=== PATIENT | male | born 1945 | race Two or more races ===

== ENCOUNTER 2016-11-02 09:03 | Inpatient (IN) | payer MEDICARE, OTHER ==
[~2016-11-02] VITALS: Ht 160 cm; Wt 73.0 kg
--- NOTE | ~2016-11-02 | DS ---
PATIENT'S NAME: ALBA SILVA [facility] AGE: 71 Y [address] ROOM: [address] [address] [place] [facility] [place]: [place]02[place]2016 Discharge Summary DISCHARGE DATE: 11/18/2016 FAMILY PHYSICIAN: Michel Walton MD ATTENDING PHYSICIAN: Ronni Welch V PRIMARY DIAGNOSES: 1. Severe sepsis. 2. Infective endocarditis. 3. MSSA bacteremia. 4. Acute encephalopathy. 5. Accelerated hypertension. 6. Chronic conditions include:. a. End-stage renal disease on hemodialysis. b. Diabetes type 2. c. Essential hypertension. d. Anemia of chronic disease. 7. Thrombocytopenia. PRINCIPAL PROCEDURE: Done for the patient includes a fistulogram by Zain Beck, and also transfusion with 1 unit of PRBC. LABORATORY DATA: On admission, ABG: pH of 7.45, pCO2 of 44, pO2 of 69, this was on day of transfer to ICU, bicarb 30.6 on 2 L of oxygen. WBC on admission was 6.9, prior to discharge was 5.4; H and H on admission were 9.7 and 29.2, lowest level obtained was 5.8 and 16.7, prior to discharge were 8.1 and 25.0; on admission platelet was 87, prior to discharge was 336. Sodium on admission was 136, was stable throughout the hospital stay; potassium on admission was 4.6, was also stable throughout the hospital stay, prior to discharge was 4.8; bicarb was 24, was stable throughout the hospital stay, prior to discharge was 23; creatinine was 11.8, the patient has end-stage renal disease, on dialysis. Liver function test on admission: AST was 36, ALT 25, alkaline phosphatase 122, total bilirubin 0.9, was stable throughout the hospital stay except for alkaline phosphatase, which increased, prior to discharge was 632; total bilirubin was 0.9 and prior to discharge was 2.2. Magnesium was stable throughout the hospital stay. ESR was 85. Hemoglobin A1c was 7.8. UA with leukocytes negative, nitrite negative, wbc 2 to 5. Serum iron 48; TIBC 87; transferrin saturation 55%; haptoglobin 174 on admission, repeat was 189; folate 40. Prolactin 13.9. Procalcitonin on admission was 7.1, which was the highest level obtained. MICROBIOLOGY DATA: Blood culture x2 set was Staph aureus methicillin sensitive. Urine for Legionella antigen was negative, and urine culture was no growth after 2 days. Repeat blood cultures remain no growth. Multiple repeat cultures remain no growth. Stool for occult blood was positive x3. PATIENT'S NAME: ALBA SILVA [facility] AGE: 71 Y [address] ROOM: [place] [address] [place] [facility] [place]: 11/02/2016 Discharge Summary DISCHARGE DATE: 11/18/2016 FAMILY PHYSICIAN: Michel Walton MD ATTENDING PHYSICIAN: Ronni Welch V RADIOLOGY DATA: Chest x-ray was reported as cardiac silhouette is mildly prominent, although accentuated by suboptimal inspiration. There is prominence of the perihilar interstitial markings. CT of the head, no acute hemorrhage or midline shift, generalized atrophic changes. CT lumbar spine, extensive multilevel degenerative changes with multiple areas of significant canal and bilateral neuroforaminal stenosis, worse at L4 and L5. No definite evidence of diskitis or osteomyelitis. CT lumbar stable overall appearance since imaging of 11/03. Repeat CT head, stable. No evidence of acute intracranial abnormality. Abdominal ultrasound, no evidence of biliary obstruction. Atrophic kidneys. CT abdomen and pelvis, small bilateral pleural fluid collection and bibasilar consolidation, worse on the left side. Calcified granuloma at the mid left lung, fluid within small bowel loops and colon with no evidence of obstruction. Subcutaneous edema involving the flanks and proximal thigh. Echocardiogram for TRAE is reported as ejection fraction 55% to 60%. Mitral valve is thickened and calcified. There is a small echogenic density attached to the posterior leaflet of the mitral valve. It is on the left atrial side and has independent motion suggestive of vegetation. Echocardiogram, ejection fraction 60%, moderate septal left ventricular hypertrophy, grade 2 diastolic dysfunction, pseudonormal. HOSPITAL COURSE: For history of present illness, please take a look at the H and P, which was done by Dr. Welch. The patient was admitted to progressive care unit. He was managed as a case of severe sepsis given his presentation of confusion mixed with some intermittent period of obtundation. He did get a Renal consult from his first day of his hospital stay, and the patient was dialyzed on his first day, and he was also started on broad-spectrum antibiotics of Zosyn and Vancomycin since the source of his sepsis at this point in time was unknown. However, there was high concern for probable diskitis as well since the patient also presented with some back pain. However, an MRI of his back was unable to be done, and so he ultimately got a CT of his lumbar done, which did not show any signs of diskitis. However, during his hospital stay, the patient still continued complaining of back pain, which did not respond to most of the analgesics used. We switched from tramadol to Percocet, which did not help. That was stopped, and then ultimately was switched to MS Contin, which as well did not do make much difference, and he was also put on Toradol. By the next day of his hospital PATIENT'S NAME: ALBA SILVA [facility] AGE: 71 Y [address] ROOM: [address] [address] [place] [facility] [place]: 11/02/2016 Discharge Summary DISCHARGE DATE: 11/18/2016 FAMILY PHYSICIAN: Michel Walton MD ATTENDING PHYSICIAN: Ronni Welch V stay, the patient's blood culture was already positive for Staph, so his antibiotics was deescalated, and Zosyn was discontinued. He was continued on vancomycin. By the second day of his hospital stay, the sensitivity came out to be MSSA, and Vancomycin was discontinued, and he was ultimately put on oxacillin. He did also get an ID consult, and they agreed with the antibiotics. Also given the nature of the organism, which was present in the blood, he did get a TRAE done, which showed mitral valve vegetation, so he was managed as a case of mitral valve endocarditis. Recommendations by ID were to continue antibiotics for a total of 6 weeks from a negative blood culture. By the seventh day of his hospital stay, the patient's confusion got worse up to the extent that he got worsened to be delirium, and at this point in time, the patient was transferred from PCU to ICU. The reason for his delirium was thought to be secondary to polypharmacy from his pain medication, which he was getting for his back pain. While in ICU, the patient continued with his hemodialysis, and he did also develop some accelerated hypertension, which did not respond to nitroglycerin drip and also did not respond to increase in the volume of fluid, which was taken out during dialysis. He was also put on Cardene drip for the blood pressure control. This as well did not help. However, his p.o. blood pressure pills were titrated upwards, and this helped with the control of the blood pressure. By the second day of his stay in the ICU, his delirium got better; he was awake and slowly was becoming more oriented. Finally, in the ICU, his mentation returned to baseline. He was continued on antibiotics. Please note that when the patient was transferred to the ICU, his oxacillin was discontinued, and he was put on Zosyn, and after the patient was reviewed again by the ID team, they decided to put the patient on Ancef 2 g with dialysis, and this is what the patient was continued on until discharge. The patient continued with physical therapy, occupational therapy. His mentation had returned to baseline. He was now alert, awake, and oriented x3, and his back pain was better controlled, and he was ultimately transferred out of the ICU to regular floor from where he was discharged home with Home Health and physical therapy. So on the day of discharge, vital signs were stable. He was ambulating on the hallway 150 feet, still did complain of some back pain but which was controlled with analgesics that he was on, and the patient was discharged home. MEDICATIONS ON DISCHARGE: 1. Ranitidine 150 mg orally twice daily. 2. Calcium acetate 667 mg orally 3 times daily. 3. Coreg 25 mg twice daily. 4. Norvasc 10 mg p.o. q.h.s. 5. Lipitor 10 mg orally q.h.s. 6. Requip 0.25 mg orally q.h.s. 7. Ipratropium nasally 1 to 2 sprays everyday. 8. Ancef 2 g Mondays, Wednesdays, and Fridays with dialysis. 9. Insulin Levemir 7 units subcu q.h.s. PATIENT'S NAME: ALBA SILVA [facility] AGE: 71 Y [address] ROOM: [address] [place] [id number] [place] [facility] [place]: 11/02/2016 Discharge Summary DISCHARGE DATE: 11/18/2016 FAMILY PHYSICIAN: Michel Walton MD ATTENDING PHYSICIAN: Ronni Welch V 10. Lidocaine patch. 11. Lisinopril 20 mg p.o. daily, new medication. 12. MiraLAX 17 g p.o. twice daily p.r.n. 13. Aldactone 25 mg p.o. daily, new medication. 14. Tracy 1 tablet every 4 hours p.r.n. 15. Dextrose 15 g orally p.r.n. 16. Glucagon 1 mg subcu one time p.r.n. Discharge time spent on this patient is approximately 40 minutes. MD NAYELY SAMUEL/sara /[id number] d: 11/19/16 0113 t: 11/30/16 0957, DISCHARGE SUMMARY
--- NOTE | ~2016-11-02 | CON ---
PATIENT'S NAME: ALBA SILVA [facility] AGE: 71 Y [address] ROOM: [place] [address] LOCATION: [facility] ADMIT DATE: 11/02/2016 Consultation DISCHARGE DATE: FAMILY PHYSICIAN: Michel Walton MD ATTENDING PHYSICIAN: MATHWE CARPIO V DATE OF CONSULTATION: 11/04/2016 REFERRING PHYSICIAN: ARGENIS PEDROZA REASON FOR EVALUATION: Bacteremia. CHIEF COMPLAINT: The patient states his back hurts. HISTORY OF PRESENT ILLNESS: Mr. Silva is a 71-year-old man with end-stage renal disease, on dialysis. He has a fistula in his left arm. There have been no issues with his fistula. He developed fevers. The source of this was not clear. He ends up being admitted to the hospital after a couple of ER trips. He grew MSSA in his blood. Initially on vancomycin and Zosyn, he has been changed over to oxacillin today. He has had no adverse effect to his antibiotics. His temperatures are doing better. He does, however, have back pain. This is different from his normal back pain and it is worse. He has no lower extremity weakness symptoms. He did have a CT of his back, which was suggestive only of degenerative disease. He cannot have an MRI due to his pacemaker. A Cardiology evaluation has been requested for TRAE. This has not yet been done. I am asked to evaluate. PAST MEDICAL HISTORY: Significant for diabetes; high blood pressure; end-stage renal disease, on dialysis; sick sinus syndrome with a pacemaker in place. SOCIAL HISTORY: Negative for tobacco, alcohol, or drug use, was living independently prior to admission. FAMILY HISTORY: No unusual infections or immune disorders. REVIEW OF SYSTEMS: Pertinent positives include: MUSCULOSKELETAL: The patient with back pain. CONSTITUTIONAL: The patient with previous fevers. GENITOURINARY: The patient has end-stage renal disease, on dialysis. PATIENT'S NAME: ALBA SILVA [facility] AGE: 71 Y [address] ROOM: [address] [place] [id number] LOCATION: [facility] ADMIT DATE: 11/02/2016 Consultation DISCHARGE DATE: FAMILY PHYSICIAN: Michel Walton MD ATTENDING PHYSICIAN: MATHEW CARPIO V As the patient denies other symptoms, remainder of complete review of systems is otherwise negative. PHYSICAL EXAMINATION: GENERAL: The patient is lying in bed, in no acute distress. Appears nontoxic. HEENT: The patient is anicteric. No conjunctival lesions noted. Ears, Nose, Throat: Tongue has no thrush. CARDIOVASCULAR: Heart is regular rate and rhythm. There is a systolic murmur present. RESPIRATORY: Breathing is easy, unlabored. Lungs are clear anterolaterally. GASTROINTESTINAL: Abdomen is soft, nontender. Normoactive bowel sounds are present. GENITOURINARY: No suprapubic tenderness. NEUROLOGIC: The patient is awake, alert, appropriate in conversation. LYMPHATIC: No cervical lymphadenopathy. MUSCULOSKELETAL: No effusions of fingers, wrists, elbows, shoulders, or knees. He has good strength in his feet. INTEGUMENTARY: No obvious rash. LABORATORY DATA: Laboratory studies are reviewed in the electronic medical record. ASSESSMENT AND RECOMMENDATIONS: 1. MSSA septicemia. Source of this is not clear. He does have a fistula. The area does not appear overtly infected. There have been no issues with dialysis access. Surveillance blood cultures are cooking from today. I agree with the oxacillin. We will see what these followup cultures have to show, and he will need a TRAE given the presence of a pacemaker. He is looking at a minimum of 4 to 6 weeks of parenteral antibiotics. Should his TRAE be negative, I would proceed with a bone scan to better evaluate for back infection. Given staphylococcal bacteremia and new/worsening back pain, this is always a concern. He can obtain an MRI. CT may be unrevealing early but a bone scan should still have some diagnostic ability here. This would not let us know if there is an abscess, but it would let us know if there is some infection and would change our overall duration of therapy etc. Thank for allowing me to participate in the care of Mr. Silva. TANYA MCNEILL MD PATIENT'S NAME: ALBA SILVA [facility] AGE: 71 Y [address] ROOM: [place] [address] [facility]ATION: [facility] ADMIT DATE: 11/02/2016 Consultation DISCHARGE DATE: FAMILY PHYSICIAN: Michel Walton MD ATTENDING PHYSICIAN: MATHEW CARPIO V DSQ/modl /[id number] d: 11/05/16 0115 t: 11/05/16 1002, CONSULTATION REPORT
--- NOTE | ~2016-11-02 | ER ---
PATIENT'S NAME: ALBA SILVA [facility] AGE: 71 Y [address] ROOM: [place] [address] LOCATION: [facility] ADMIT DATE: 11/02/2016 ER/Outpatient Report DISCHARGE DATE: FAMILY PHYSICIAN: Michel Walton MD ATTENDING PHYSICIAN: MATHEW CARPIO V Time of Arrival: 0903 hours. Time of Evaluation: 0905 hours. IDENTIFICATION: A 71-year-old male. CHIEF COMPLAINT: Illness. HISTORY OF PRESENT ILLNESS: The patient is a 71-year-old male from [place], who has end-stage renal disease, on dialysis 3 times a week from a fistula in his left upper arm. He has had fever and weakness. He was seen in the [facility] yesterday, given 1 L of IV fluids. Lab work was done to include sodium of 142, potassium 4.8, chloride 94, CO2 of 29, BUN 61, creatinine 10.34, blood sugar 255. Liver enzymes were normal, and this was at 2134 hours. Hemoglobin 12.1, hematocrit 37, platelets 105, white count 10.6. He continues to have generalized weakness and fever, so he was brought here. ALLERGIES: NO KNOWN DRUG ALLERGIES. CURRENT MEDICATIONS: 1. Amlodipine 10 mg daily. 2. Atorvastatin 10 mg daily. 3. Calcium acetate 667 mg 3 times a day. 4. Carvedilol 25 mg b.i.d. 5. Diltiazem 180 mg once daily. 6. Lantus 15 units subcu q.a.m. 7. Ranitidine 150 b.i.d. 8. Ropinirole 0.25 mg daily. 9. Valsartan 320 mg daily. 10. The patient has not taken his medicine since yesterday and has not taken his insulin for a couple of weeks because his blood sugars have actually been better. MEDICAL PROBLEMS: 1. Diabetes mellitus, insulin requiring. 2. End-stage renal disease, on hemodialysis for 9 years on Wednesday, PATIENT'S NAME: RICARDO [facility] AGE: 71 Y [address] ROOM: [place] [address] LOCATION: [facility] ADMIT DATE: 11/02/2016 ER/Outpatient Report DISCHARGE DATE: FAMILY PHYSICIAN: Michel Walton MD ATTENDING PHYSICIAN: MATHEW CARPIO V Wednesday, and Wednesday. 3. Sick sinus syndrome, status post pacemaker placement. PRIOR SURGERIES: 1. Pacemaker. 2. Fistula, left upper arm. 3. Bilateral cataracts. SOCIAL HISTORY: The patient lives in [place]. He does have his power of criminal defense attorney, who is his daughter, and she does care for him at some level, here with him today. REVIEW OF SYSTEMS: All systems reviewed and negative other than what is noted in the HPI. FAMILY HISTORY: No pertinent family history identified. PHYSICAL EXAMINATION: VITAL SIGNS: Height 5 feet 2 inches, weight 63.2 kg, blood pressure 171/79, pulse 91, respirations 20, temp 103 tympanic, sats 90% on room air. GENERAL: A 71-year-old male, who has generalized weakness but otherwise alert and oriented. HEENT: Head: Normocephalic, atraumatic. Ears: TMs translucent both ears. Nose: Mucosa pink, no lesions. Mouth: No lesions. Pharynx benign. Mucous membranes slightly dry. NECK: Supple. No lymphadenopathy. LUNGS: Clear to auscultation. HEART: Regular rate and rhythm. ABDOMEN: Bowel sounds present. Soft, nondistended. No hepatosplenomegaly. No palpable masses. Nontender. SKIN: [place], warm, and dry. No lesions or rashes noted. NEURO: The patient is alert and oriented x4. Cranial nerves 2 through 12 grossly intact. Generalized weakness, but he does have equal motor strength. He is just generally weak, probably 4/5 throughout. Sensation is intact to light touch. LABORATORY DATA AND X-RAYS: Venous pH 7.48. Lactate 1.6. Sodium 136, potassium 4.6, chloride 97, CO2 of 24, BUN 64, creatinine 11.8, blood sugar 283. Liver enzymes normal. Phosphorus 2.0, magnesium 2.2. CPK 361, CK-MB 1.1. Troponin I 0.088. Hemoglobin A1c 7.8. Ketones negative. Hemoglobin 9.7, hemoglobin that was after redraw yesterday in [place] was 12.1; hematocrit 29.2; platelets 87, platelet count yesterday in [place] was 105, no previous platelet count available here for comparison. INR 1.1. White blood cell differential 78% segs, 11% bands. Procalcitonin elevated at 27.14. UA not obtained here in PATIENT'S NAME: ALBA SILVA [facility] AGE: 71 Y [address] ROOM: [id number] [place], [place] [address] LOCATION: [facility] ADMIT DATE: 11/02/2016 ER/Outpatient Report DISCHARGE DATE: FAMILY PHYSICIAN: Michel Walton MD ATTENDING PHYSICIAN: MATHEW CARPIO V the emergency room. The patient makes minimal urine and is incontinent of urine. One-view chest x-ray, cardiomegaly, suboptimal inspiration, no definite infiltrate, left-sided pacer, mild increased pulmonary vascularity, pending Radiology over-read. His daughter thought maybe his speech was a little abnormal. It did not seem to change here for us, but we did do a noncontrasted head CT with no acute findings per Radiology. IMPRESSION AND PLAN: 1. Sepsis. No acute etiology identified. Influenza was tested yesterday and was negative. The patient was empirically started on the sepsis pathway, and antibiotics were ordered to include Levaquin and Zosyn. The Levaquin was initiated in the emergency room. The Zosyn will be initiated after dialysis. The patient remained hemodynamically stable throughout his stay here in the emergency room. 2. Diabetes mellitus, insulin requiring. 3. End-stage renal disease, on hemodialysis. Plan for admission per Dr. Carpio, who evaluated the patient in the emergency room, and then he was taken to dialysis for Mila De Santiago. BLANKA POLLARD MD CAR/modl /[id number] d: 11/02/16 2359 t: 11/03/16 0923, OUTPATIENT REPORT
--- NOTE | ~2016-11-02 | CON ---
PATIENT'S NAME: ALBA SILVA [facility] AGE: 71 Y [address] ROOM: [address]63[address] [place], [place] [address] LOCATION: GPCU ADMIT DATE: 11/02/2016 Consultation DISCHARGE DATE: FAMILY PHYSICIAN: Michel Walton MD ATTENDING PHYSICIAN: MATHEW CARPIO V DATE OF CONSULTATION: 11/02/2016 REASON FOR CONSULTATION: ESRD, management of chronic hemodialysis. HISTORY OF PRESENT ILLNESS: A 71-year-old male patient with a history of hypertension, Type II DM, coronary artery disease, status post permanent pacemaker implantation, ESRD, on hemodialysis for last 9 years, admitted with fever of 103F without any specific source at this point. Nephrology consultation has been called for the chronic hemodialysis management. As per the patient, he was feeling well until a couple of days ago. Since then, he was having chills and fever this morning of 103 degree Fahrenheit. Instead of going to the dialysis unit, he came to the ER when he was treated initially with Tylenol, which helped him to decrease his fever, but he was given ibuprofen afterwards resulting in defervescence. He was started on vancomycin, Zosyn, and Levaquin for suspected sepsis. Chest x-ray although not optimal but has probable bilateral hilar and left lower lobe infiltrate. He was also saying that he is having trouble with finding words, but he is alert and oriented. CT scan of head without contrast has been done for this decreased mentation and was reported to be negative without any acute changes. The patient is getting dialysis as per his usual dialysis schedule on Wednesday, Wednesday, and Wednesday. We will dialyze him today in our inpatient dialysis unit. REVIEW OF SYSTEMS: GENERAL: Complaining of fever, chills, and rigor as mentioned above. HEENT: No sinus congestion. No sore throat. CVS: No chest pain. No exertional shortness of breath. No leg swelling. RESPIRATORY: No cough. No sputum production. GENITOURINARY: No pain with urination. No increased frequency. No nocturia. GASTROINTESTINAL: No abdominal pain. No abdominal distention. No nausea or vomiting. NEUROLOGIC: No weakness. No seizures. SKIN: No rash. No itching. ALLERGIES: No seasonal allergy. No hayfever. ENDOCRINE: No heat intolerance. No cold intolerance. PSYCHIATRIC: No sadness. No crying spells. No history of panic attack. PAST MEDICAL HISTORY: 1. Hypertension. 2. Diabetes 3. CAD. 4. Bradycardia, query sick sinus syndrome. 5. ESRD, on chronic in-center hemodialysis for last 9 years. PAST SURGICAL HISTORY: Permanent pacemaker implantation a year back at [facility]. FAMILY HISTORY: He has significant history of hypertension and coronary artery disease in the family. No history of renal failure or ESRD. PATIENT'S NAME: ALBA SILVA [facility] AGE: 71 Y [address] ROOM: [id number] [place], [place] [address] LOCATION: GPCU ADMIT DATE: 11/02/2016 Consultation DISCHARGE DATE: FAMILY PHYSICIAN: Michel Walton MD ATTENDING PHYSICIAN: MATHEW CARPIO V SOCIAL HISTORY: Denied any alcohol, smoke, or drug abuse. He lives in [place]. PHYSICAL EXAMINATION: VITAL SIGNS: Blood pressure ranging from 100 to 140 over 50 to 60, pulse is 80, respiratory rate 18. The patient had a temperature of 102.7 at the initiation of dialysis, which improved to 100.2 degree Fahrenheit with ibuprofen. GENERAL: Not in apparent distress. HEAD: Moist mucous membranes. Bilateral PERRLA, EOMI. NECK: No JVD, thyromegaly or lymphadenopathy. CVS: S1 and S2 normal, regular rate and rhythm. No murmur, rub, gallop. CHEST: Bilateral air entry equal. No wheeze or rales. ABDOMEN: Soft, nontender, nondistended. Bowel sounds present. EXTREMITIES: No cyanosis, clubbing, jaundice. No dependent edema. MUSCULOSKELETAL: No limitation of range of motion. SKIN: No pallor, cyanosis, icterus. LONG TERM: Alert and oriented x3. No gross findings. LABORATORY DATA: WBC 6.9, hemoglobin 9.7, platelet 87. Lactate 1.6. Troponin 0.088. Chemistry: Sodium 136, potassium 4.6, chloride 97, bicarb 24, BUN 64, creatinine 11.8, glucose 283, calcium 9.1. Total protein 7.6, albumin 3.5, AST 36, ALT 25, alkaline phosphatase 122, total bilirubin 0.9, phosphorus 2. PT 11.4, INR 1.1, PTT 32. Procalcitonin 27.14. Band percentage 11. ASSESSMENT AND PLAN: 1. Fever of unknown origin/abscess, although there is no significant leukocytosis, but the patient has significant bandemia and increase in procalcitonin suggestive of infection. The patient has been started on vancomycin, Zosyn, and Levaquin. Culture has been sent from blood for both aerobic and anaerobic culture. The patient will need possibly a CT scan of chest for better evaluation of the pulmonary opacity/infiltrate. Currently, euvolume status, and there is no concern of fluid overload. We will give a liter of fluid bolus on dialysis as the patient's blood pressure is too labile while on dialysis. Rest of the management of sepsis as per the primary care team. 2. End-stage renal disease, on hemodialysis on Wednesday, Wednesday, and Wednesday schedule for the last 9 years. Currently seen and examined on dialysis. The patient is tolerating hemodialysis well except maintaining a marginal blood pressure. Otherwise, no significant neurological complications. We are dialyzing him on a 2 K bath for 4 hours with no fluid removal, and actually, we are giving a liter of fluid bolus to support his hemodynamics as his blood pressure is very labile. 3. Hypertension. Blood pressure is marginal as mentioned above. We will hold the amlodipine and diltiazem for now. May continue Coreg. 4. Coronary artery disease. Management as per primary team. Thank you for allowing me to participate in this patient's care. We will closely monitor the patient's progress along with you. HISEKH MAURICIO PEDROZA MD /modl /[id number] d: 11/02/162139 t: 11/03/16 1334, CONSULTATION REPORT
--- NOTE | ~2016-11-02 | OR ---
PATIENT'S NAME: ALBA SILVA [facility] AGE: 71 Y [address] ROOM: [place] [address] [facility] ADMIT DATE: 11/02/2016 OR/Procedure Report DISCHARGE DATE: FAMILY PHYSICIAN: Michel Walton MD ATTENDING PHYSICIAN: MATHEW CARPIO V SURGEON: Hipolito Gurrola MD PICKER TENDER: DATE OF PROCEDURE: 11/06/2016 PREOPERATIVE DIAGNOSIS: Poorly functioning AV fistula. POSTOPERATIVE DIAGNOSIS: No abnormality seen. PROCEDURE: Fistulogram. INTERNATIONAL TRADE TEACHER: Manoj. ANESTHESIA: MAC local. ESTIMATED BLOOD LOSS: 5 mL. OPERATIVE FINDINGS: No abnormality seen. DESCRIPTION OF PROCEDURE: The patient was brought to the laborer steel handling, placed supine on the laborer steel handling table, prepped and draped in a sterile manner. Preoperative time-out was performed. We gained access using ultrasound guidance via the left arm radiocephalic AV fistula. We used a micropuncture needle, followed by micropuncture wire, after infiltrating skin with 1% lidocaine. We exchanged for a micropuncture catheter and performed a series of fistulogram which showed no abnormality in the outflow tract or in the inflow tract. The sheath was removed. Pressure was held for 10 minutes. The patient tolerated the procedure well and transferred to recovery room and then back to the floor. HIPOLITO GURROLA MD FKM/modl /[id number] d: 11/06/162057 t: 11/07/16 1042, OPERATIVE SUMMARY
--- NOTE | ~2016-11-02 | CON ---
PATIENT'S NAME: ALBA SILVA [facility] AGE: 71 Y [address] ROOM: [place] [address] LOCATION: GICU ADMIT DATE: 11/02/2016 Consultation DISCHARGE DATE: FAMILY PHYSICIAN: Michel Walton MD ATTENDING PHYSICIAN: MATHEW CARPIO V DATE OF CONSULTATION: 11/12/2016 REFERRING PHYSICIAN: ARGENIS PEDROZA REASON FOR REQUEST: Anemia with recent positive heme test. HISTORY OF PRESENT ILLNESS: This is a 71-year-old male, most recently admitted for fever of 103.4, with general malaise. This started around the 31 of October. Previously, the patient was worked up with a TRAE showing vegetation on the post mitral valve, also positive for MSSA in the blood of which ID following and the patient is receiving a 4-6 week regimen of antibiotic therapy. The patient also had a fistulogram during the hospital stay showing no abnormalities. GI is being brought onto the case due to a recent drop in hemoglobin from 7.1 to 5.8 with a recheck of 6.2 after 1 unit of PRBCs transfused and has also tested positive for blood in the stool. The patient reports no recent abdominal tenderness, nausea, vomiting, or diarrhea. Denies any shortness of breath, chest pain, or dyspnea on exertion. The patient reports no recent chills or night sweats. The patient appeared calm, cooperative, and comfortable and sitting up in a chair at this time of evaluation. PAST MEDICAL HISTORY: Consists type 2 diabetes mellitus; hypertension; coronary artery disease; end- stage renal disease, requiring hemodialysis; and sick sinus syndrome, status post pacemaker. SURGICAL HISTORY: Permanent pacemaker, a left arm radiocephalic fistula with recent fistulogram. No history of colonoscopy or upper endoscopy. FAMILY HISTORY: Significant for hypertension and coronary artery disease, without any gastrointestinal family history. SOCIAL HISTORY: The patient resides in [place] and denies any alcohol, tobacco, or illicit drug use. MEDICATIONS: PATIENT'S NAME: RICARDO [facility] AGE: 71 Y [address] ROOM: [place] [address] LOCATION: GICU ADMIT DATE: 11/02/2016 Consultation DISCHARGE DATE: FAMILY PHYSICIAN: Michel Walton MD ATTENDING PHYSICIAN: MATHEW CARPIO V Please see E-MAR for current medications. Currently not on any medications specific to the GI. ALLERGIES: NO KNOWN DRUG ALLERGIES. REVIEW OF SYSTEMS: A 10-point review negative besides pertinent positives mentioned in the HPI. The patient denies melena, hematemesis, or abdominal discomfort. PHYSICAL EXAMINATION: VITAL SIGNS: Temperature 98.6, heart rate of 80, blood pressure 191/100, and oxygen saturation 97% on room air. GENERAL: Alert, slightly confused, sitting up in chair. NEUROLOGICAL: Without any focal deficits. HEENT: Pupils equal, round, and reactive to light. Normocephalic, atraumatic. Non-icteric. Mucosa pink and moist without any thyromegaly or lymphadenopathy. CARDIAC: Regular rate and rhythm. S1 and S2. RESPIRATORY: Clear throughout and on auscultation equal rise and fall of chest. ABDOMEN: Bowel sounds positive x4 quadrants. Abdomen nontender and soft without any hepatosplenomegaly. MUSCULOSKELETAL: Equal strength throughout without any atrophy. VASCULAR: Pulses are 1+ to posterior tibialis and dorsalis pedis bilaterally. No significant edema. LABORATORIES AND DIAGNOSTICS: Accu-Cheks ranging 123, 225, 73, and 93. Hemoglobin 7.2, hematocrit 20.7, white blood cells 7.9, and platelets of 223. Sodium 132, potassium 4.4, chloride 94, bicarb 25, BUN 34, creatinine 6.7, calcium 8.4, and GFR of 8. Magnesium 2.3, phosphorus 2.4, albumin 2.4, procalcitonin 7.85. AST 26, ALT 11, alkaline phosphatase 300, total bilirubin 3.6. RDW 18.6. Reticulocyte 2.2. LDH 224. Haptoglobin 189. Lipase 101. Urinalysis showing minimal bacteria. Recent stool positive for occult blood. Blood cultures previously drawn positive with Staphylococcus aureus. Abdominal ultrasound showing atrophic kidneys. No biliary obstruction. Common bile duct measuring [address] of abdomen, GI specifics of fluid within the small bowel loops and colon without any evidence of obstruction. ASSESSMENT AND PLAN: Again, this is a very pleasant 71-year-old male, presenting for a severe sepsis workup followed with TRAE showing vegetation. Blood cultures positive for methicillin-sensitive Staphylococcus aureus and recently a drop in hemoglobin with positive heme test. PATIENT'S NAME: ALBA SILVA [facility] AGE: 71 Y [address] ROOM: [id number] [place], [place] [address] LOCATION: [facility] ADMIT DATE: 11/02/2016 Consultation DISCHARGE DATE: FAMILY PHYSICIAN: Michel Walton MD ATTENDING PHYSICIAN: MATHEW CARPIO V 1. Anemia. We will run iron studies along with TIBC, B12, folate, and ferritin for a full workup. We will also continue to trend hemoglobin q.4 hours and treat appropriately. 2. End-stage renal disease. The patient currently receiving hemodialysis with Nephrology on the case, and we will allow them to continue with management. 3. Methicillin-sensitive Staphylococcus aureus. Continue with current antibiotic regimen per Infectious Disease and Hospitalist Care. Again, thank you for the opportunity to be consulted on this case, and we will continue to follow with anemia workup and as needed. ROLF SHAFFER APRN FOR CHRIS CROSS MD MMF/modl /[id number] d: 11/12/16 2325 t: 11/20/16 1834, CONSULTATION REPORT
--- NOTE | ~2016-11-02 | ECHO ---
Transthoracic Echocardiography Report (TTE) Demographics Patient Name ALBA SILVA Date of Study 11/04/2016 Patient Number [id number] Visit Number [id number] Date of 1945 Room Number G6318 Gender Male Number Age 71 year(s) Referring Martha Melvin MD Batch And Furnace Operator Juwan Colung[place] Physician Isabelle Coulter MD Physician Interpreting Estela Alexandra Echo Technologist Physician MD Supervising Ordering Martha Melvin MD, MD/MLP Physician Nurse Stress Butcher Head Conclusions Contractility Score Summary Normal Left Ventricular contractility was noted. Summary Normal LV/RV size and systolic function. The estimated left ventricular ejection fraction is 60%. Moderate septal left ventricular hypertrophy. Diastolic assessment reveals Grade II pseudonormal diastolic function. The left atrium is moderately dilated by LA volume index measurement. The right atrium is mildly dilated. There is mild pulmonary hypertension. The pulmonary pressure (RVSP) is 37 mmHg. Clinical correlation, recommend TRAE to visualize the valves better if indicated. Procedure Type of Study TTE procedure:2D Echocardiogram, M-Mode, Doppler , Color Doppler. Procedure Date Date: 11/04/2016 Start: 03:23 PM Study Location: Inpatient Portable Technical Quality: Good visualization Indications:Endocarditis. Additional Indications:Staph sepsis Evaluate for endocarditis Appropriate Use Criteria: 9 Patient Status: Routine HR: 89 bpm BP: 159/72 mmHg M-Mode/2D Measurements LV Diastolic Dimension: 4.26 cm LV Systolic Dimension: 3.01 cm LV Septum Diastolic: 1.58 cm LV PW Diastolic: 1.01 cm AO Root Dimension: 2.9 cm Cardiac Output: 6.51 l/min LA Dimension: 3.6 cm Post Pericard Effusion: 1.9 cm LVOT: 2 cm EF Estimated: 60 % LVOT VTI: 23.3 cm LV Stroke volume: 73.16 ml RV Mid: 2.01 cm RV Length: 6.36 cm TAPSE: 2.37 cm TDI-S': 15.7 cm/s Doppler Measurements AV Peak Velocity: 1.6 m/s MV Peak E-Wave: 1.26 m/s AV Peak Gradient: 10.24 mmHg MV Peak A-Wave: 1.12 m/s AV Mean Gradient: 7 mmHg MV E/A Ratio: 1.12 LVOT Peak Velocity: 1.28 m/s MV P1/2t: 71 msec TR Gradient:28.94 mmHg PV Peak Velocity: 1.3 m/s Estimated RAP:8 mmHg PV Peak Gradient: 6.76 mmHg Estimated RVSP: 37 mmHg Estimated PASP: 36.94 mmHg E' Septal Velocity: 0.08 m/s A' Septal Velocity: 0.12 m/s E' Lateral Velocity: 0.08 m/s A' Lateral Velocity: 0.15 m/s Findings Left Ventricle The left ventricle is normal in size . Moderate septal left ventricular hypertrophy. Diastolic assessment reveals Grade II pseudonormal diastolic function. Right Ventricle Normal right ventricle structure and function. Left Atrium The left atrium is moderately dilated by LA volume index measurement. Right Atrium The right atrium is mildly dilated. IVC measures 1.91 cm with partial inspiratory collapse. Mitral Valve Mild mitral annular calcification. Mild thickening of the mitral valve leaflets. Aortic Valve The aortic valve is mildly sclerotic. Tricuspid Valve Trivial tricuspid regurgitation by color Doppler. TV is not well visualized. There is mild pulmonary hypertension. The pulmonary pressure (RVSP) is 37 mmHg. Pulmonic Valve PV is not well visualized. Pericardial Effusion Trivial pericardial effusion. Miscellaneous Visualized portions of the aortic root and ascending aorta appear normal in size. Pleural Effusion Possible pleural effusion. Contractility Score LV regional wall motion:(0-Non visualized 1-Normal 2-Hypokinesis 3-Akinesis 4-Dyskinesis 5-Aneurysm) Signature dtt: DEREK HACKETT dtd: 11/04/16 1523 Physician Self Edit
--- NOTE | ~2016-11-02 | HP ---
PATIENT'S NAME: [facility] AGE: 71 Y [address] ROOM: [address] [place], [place] [address] LOCATION: GPCU ADMIT DATE: 11/02/2016 History & Physical DISCHARGE DATE: FAMILY PHYSICIAN: Michel Walton MD ATTENDING PHYSICIAN: MATHEW CARPIO V DATE OF SERVICE: CHIEF COMPLAINT: Fever. HISTORY OF PRESENT ILLNESS: The patient is a 71-year-old male with past medical history most significant for end-stage renal disease, on dialysis as well as a pacemaker. He presented to the hospital in [place] yesterday with approximately 1-2 days of fevers and generalized malaise. He denies any chest pain, nausea, but does admit to a brief episode of diarrhea yesterday. No syncope, no diaphoresis, no dysuria. His workup in [place] was unremarkable and he was discharged home but returned to the ER at [facility] today with persistent fever and malaise. In the ER, he was found to have a temperature 103.4. He also was found to be hypoxic with a saturation of 84% on room air. Aside from that, the workup so far has revealed a questionable left lower lobe infiltrate. REVIEW OF SYSTEMS: All systems have been reviewed and are negative aside from pertinent positives mentioned above. PAST MEDICAL HISTORY: 1. As conveyed to me by the patient and his daughter is history of type 2 diabetes. 2. Hypertension. 3. End-stage renal disease on dialysis. 4. Questionable history of coronary artery disease. PAST SURGICAL HISTORY: Significant for placement of a pacemaker and cataract. CURRENT MEDICATIONS ARE: 1. Amlodipine. 2. Atorvastatin. 3. Calcium acetate. 4. Carvedilol. 5. Diltiazem. PATIENT'S NAME: [facility] AGE: 71 Y [address] ROOM: [address] [place], [place] [address] LOCATION: GPCU ADMIT DATE: 11/02/2016 History & Physical DISCHARGE DATE: FAMILY PHYSICIAN: Michel Walton MD ATTENDING PHYSICIAN: MATHEW CARPIO V 6. Lantus. 7. Ranitidine. 8. Requip. 9. Valsartan. SOCIAL HISTORY: The patient lives by himself and denies any history of toxic habits. FAMILY HISTORY: Reviewed and is noncontributory due to an advanced age and multiple medical problems. PHYSICAL EXAMINATION: VITAL SIGNS: Blood pressure is 180/99, heart rate is in the 80s to 90s, temperature is 103, saturation is 87% to 85% on room air, rising to 97% on 2 L nasal cannula, respirations are 16. GENERAL: Appears as a chronically ill, elderly male, in mild distress due to rigors. NEUROLOGIC: Nonfocal. EYES: Show pupils are equal and reactive to light. LYMPHATIC: Shows no cervical lymphadenopathy. ENDOCRINE: No thyromegaly. LUNGS: There are crackles at the left base. HEART: Reveals regular rate and rhythm without appreciable murmurs, gallops, or rubs. There is no lower extremity edema or significant JVD appreciated. GI: Abdomen is soft, nontender, nondistended. : Reveals no costovertebral angle tenderness. VASCULAR: Reveals 2+ pedal pulses. MUSCULOSKELETAL: Shows no muscle or joint abnormalities. SKIN: Warm and dry. PSYCHIATRIC: Reveals appropriate mood, cognition, and affect. LABORATORY DATA: Studies performed in the ER significant for an EKG which shows sinus rhythm at 86 beats per minute with interventricular conduction delay, impossible right- sided overload. Lab results are significant for lactate of 1.6, glucose of 283. Mild troponin elevation. Normal white count. Hemoglobin 9.7, INR 1.1. Remainder still pending. ASSESSMENT AND PLAN: This is a 71-year-old male who technically meets the criteria for severe sepsis. As such, he will be admitted with severe sepsis, as of yet unknown source. We will broadly cover him with vancomycin and Zosyn. Follow blood cultures drawn in the ER. We will get a urine sample as he does still make urine. Given normal white count, we will consider an ID consultation. PATIENT'S NAME: ALBA SILVA [facility] AGE: 71 Y [address] ROOM: [place] [address] [facility] ADMIT DATE: 11/02/2016 History & Physical DISCHARGE DATE: FAMILY PHYSICIAN: Michel Walton MD ATTENDING PHYSICIAN: MATHEW CARPIO V 1. End-stage renal disease, on hemodialysis. The patient is due for dialysis and is about to be taken to the dialysis. 2. Type 2 diabetes. His daughter tells me that he is no longer on any insulin, but his glucose is 283 and I suspect he will need coverage. 3. History of questionable coronary artery disease, would like to get those records. I am not sure why he is not on aspirin. 4. Deep venous thrombosis. Prophylaxis will be pharmacologic given that he has a high risk for deep venous thrombosis. 5. Additional management depend on clinical course. Time dedicated to the patient's encounter is 35 minutes. MD ESTHER AMANDA/sara /[id number] D: [id number] T: 902 HISTORY & PHYSICAL
--- NOTE | ~2016-11-02 | ECHO ---
Transesophageal Echocardiography Report (TRAE) Demographics Patient Name ALBA SILVA Date of Study 11/05/2016 Patient Number [id number] Visit Number [id number] Date of 1945 Room Number G6318 Gender Male Number Age 71 year(s) Referring Estela Alexandra Software Client Architect Physician Physician Interpreting Estela Alexandra Wood Patternmaker Apprentice Physician MD Supervising Ordering MD/MLP Physician Nurse Stress Embossing Press Operator Molded Goods Conclusions Summary The MV is thickened and calcified, there is an small echogenic density attached to the posterior leaflet of the MV, it is on the LA side and has independent motion , suggestive of vegetation. Trivial MR. Normal LV/RV size and systolic function. LVEF is 55-60%. Procedure Type of Study TRAE procedure Procedure Date Date: 11/05/2016 Start: 09:03 AM Findings Left Ventricle The left ventricle is normal in size . Right Ventricle Normal right ventricular size and function. Left Atrium The left atrium is moderately dilated. There is no evidence of patent foramen ovale or atrial septal defect by color Doppler. No left atrial appendage mass. Right Atrium The right atrium is mildly dilated. Mitral Valve Mild mitral annular calcification. The MV is thickened and calcified, there is an small echogenic density attached to the posterior leaflet of the MV, it is on the LA side and has independent motion , suggestive of vegetation. Aortic Valve Mild AV sclerosis. No AI. No vegetation noted. Tricuspid Valve TV is grossly normal. No vegetation noted. Mild to moderate TR. Pulmonic Valve PV is grossly normal. No PI. No vegetation noted. Miscellaneous The patient was brought to the [facility] lab in the fasting state after informed consent was obtained in the written and verbal format. He was prepped with Lidocaine gel and Cetacaine spray as usual. Bite block was placed. Once adequate anesthesia was obtained with anesthesia guidance with propofol sedation the TRAE probe was placed by me down into the stomach. It was pulled back slightly after a few views were obtained in the transgastric level to the transesophageal position where the majority of the case was carried out. At the end of the case the probe was rotated and withdrawn. Patient tolerated the procedure well. No plaque seen in the thoracic aorta. Signature dtt: DEREK HACKETT dtd: 11/05/16 0903 Physician Self Edit
--- NOTE | ~2016-11-02 | CON ---
PATIENT'S NAME: ALBA SILVA [facility] AGE: 71 Y [address] ROOM: [id number] [place], [place] [id number] LOCATION: GPCU ADMIT DATE: 11/02/2016 Consultation DISCHARGE DATE: FAMILY PHYSICIAN: Michel Walton MD ATTENDING PHYSICIAN: MATHEW CARPIO V DATE OF CONSULTATION: 11/06/2016 REFERRING PHYSICIAN: ARGENIS PEDROZA REASON FOR CONSULT: Difficulty accessing AV fistula and systemic infection. HISTORY OF PRESENTING ILLNESS: This is a 71-year-old male, admitted to [facility] on November 02, 2016 after presenting to the emergency room, feeling unwell for a couple of days, 2 days of fevers, chills, and a temp high of 103.4 in the ER. He was admitted for sepsis and started on vanco, Zosyn, and IV Levaquin. Since his admission, his blood cultures have grown MSSA and the patient has been seen by Infectious Disease who recommended 4 to 6 weeks of IV antibiotics. A TRAE was also performed and positive for vegetation post leaflet of mitral valve. The patient was planning to discharge home today on IV antibiotics to be given through his [employer]. However during dialysis, they have had difficulty accessing his fistula site. The patient has buttonholes present. They had to use a collateral vein for access. We have been asked to evaluate the patient for a possible fistula stenosis as well as concern of any infection from the fistula. The patient reports an overall improvement in systemic infections symptoms. No longer has fevers, chills. He denies any shortness of breath or chest pain. He denies any nausea, vomiting, diarrhea, or abdominal pain. The patient does have back pain, which he reports is worse than normal. A CT scan has been obtained. They have been unable to obtain an MRI due to the patient having a pacemaker. The patient has had no previous problems with dialysis. He denies any pain, numbness, or tingling in his left upper extremity. PAST MEDICAL HISTORY: 1. Diabetes mellitus type 2. 2. Hypertension. 3. Coronary artery disease. 4. End-stage renal disease, on hemodialysis. 5. Sick sinus syndrome, post pacemaker. PAST SURGICAL HISTORY: 1. Permanent pacemaker implantation. 2. Left arm radiocephalic fistula. PATIENT'S NAME: ALBA SILVA [facility] AGE: 71 Y [address] ROOM: [id number] [place], [place] [address] [facility] ADMIT DATE: 11/02/2016 Consultation DISCHARGE DATE: FAMILY PHYSICIAN: Michel Walton MD ATTENDING PHYSICIAN: MATHEW CARPIO V FAMILY HISTORY: Hypertension and coronary artery disease are known to be in the family. The family has no history of renal failure or end-stage renal disease. SOCIAL HISTORY: The patient lives in [place]. He denies any tobacco, alcohol, or illicit drug use. CURRENT MEDICATIONS: See medication records. ALLERGIES: NO KNOWN DRUG ALLERGIES. REVIEW OF SYSTEMS: Ten-point review of systems completed, positives addressed in history of presenting illness. PHYSICAL EXAMINATION: VITAL SIGNS: Temperature 99.4, heart rate 80, respiratory rate 16, blood pressure 118/58, oxygen saturations 91%. GENERAL: The patient is alert and oriented x3, in no acute distress. He is currently being interviewed in dialysis. SKIN: Warm, pink, without rashes. HEENT: Head: Normocephalic and atraumatic. Ears: Without drainage. Eyes: Sclerae white. Conjunctivae pink. Extraocular movements intact. PERRLA. Nose: Without drainage. Throat: Oral mucosa pink and moist. NECK: Without adenopathy. No evidence of JVD. There is no carotid bruit. RESPIRATORY: Lung sounds clear to auscultation. Even and nonlabored. CARDIOVASCULAR: Regular rate and rhythm. S1 and S2. No murmur or extra sounds. GASTROINTESTINAL: Bowel sounds active x4. Soft and nontender. No organomegaly. EXTREMITIES: Left arm radiocephalic fistula is pulsatile on palpation. Radial pulses 2+. Dorsalis pedis and posterior tibialis 2+. No edema. No cyanosis. Active range of motion. No signs of infection at fistula. NEUROLOGICAL: No focal deficits. LABORATORY DATA: Hematology: White blood cell count 4.3, hemoglobin 9.3, hematocrit 27.2, platelets 129. Chemistry: Sodium 131, potassium 4.5, chloride 91, CO2 of 28, BUN 51, creatinine 7.8, glucose 193. IMPRESSION AND PLAN: 1. End-stage renal disease, on hemodialysis with malfunctioning left AV PATIENT'S NAME: ALBA SILVA [facility] AGE: 71 Y [address] ROOM: [id number] [place], [place] [address] [facility] ADMIT DATE: 11/02/2016 Consultation DISCHARGE DATE: FAMILY PHYSICIAN: Michel Walton MD ATTENDING PHYSICIAN: MATHEW CARPIO V fistula and also with difficulty accessing. AV fistula is with buttonholes. Currently, the dialysis nurses are using a collateral vein for dialysis. Due to pulsatile fistula and possible stenosis, we will plan for fistulogram with fistuloplasty with Dr. Gurrola today. Dr. Gurrola has seen the patient and discussed risks and benefits with him. The patient is to remain n.p.o. and he is to have no more subcu heparin prior to intervention. Subcu heparin may resume after procedure. 2. Methicillin-sensitive Staphylococcus aureus and sepsis. The patient does not have a graft, therefore, if the fistula is involved in infection Antibiotics is an adequate treatment option. The patient is to be on IV antibiotics for 4 to 6 weeks. SARMAD CATES APRN FOR ZOILA GURROLA MD TO/modl /[id number] d: 11/06/16 1349 t: 11/21/16 0945, CONSULTATION REPORT
[2016-11-02 09:40] LABS: LACTATE 1.6 mEq/L (0.50-1.60)
[2016-11-02 09:49] LABS: INR - (THERAPEUTIC) 1.1 (0.9-1.1); PROTIME 11.4 SECONDS (9.6-11.1); PTT 32 SECONDS (25-32)
[2016-11-02 10:11] LABS: ALBUMIN 3.5 gm/dL (3.5-5.0); ALK PHOS 122 IU/L (33-138); ALT 25 IU/L (12-78); ANION GAP 19.6 (10.0-19.0); AST 36 IU/L (10-40); CALCIUM 9.1 mg/dL (8.5-10.5); CHLORIDE 97 mMol/L (96-110); CO2 24 mMol/L (22-32); CPK 361 IU/L (35-332); POTASSIUM 4.6 mMol/L (3.7-5.1); SODIUM 136 mMol/L (135-145); TOTAL BILIRUBIN 0.9 mg/dL (0.0-1.5); TOTAL PROTEIN 7.6 g/dL (6.0-8.4)
[2016-11-02 10:20] LABS: BLOOD UREA NITROGEN 64 mg/dL (6-24); CREATININE 11.8 mg/dL (0.6-1.3); ESTIMATED GFR (MDRD EQUATION) 4
[2016-11-02 10:56] LABS: HEMATOCRIT 29.2 % (37.0-53.0); HEMOGLOBIN 9.7 g/dL (11.0-16.0); MCH 30.5 pg (27.0-34.0); MCHC 33.2 gm/dL (32.0-36.5); MCV 91.8 fl (83.0-98.0); MPV 11.5 fl (9.4-12.4); PLATELET COUNT 87 K/uL (150-450); RBC 3.18 M/uL (3.50-5.50); RDW-CV 14.7 % (11.9-14.6); WBC 6.9 K/uL (4.0-11.0)
[2016-11-02 11:41] LABS: ABSOLUTE NEUTROPHIL CT (ANC) 6.1 K/uL (1.4-9.0); BANDED NEUTROPHIL # 0.8 K/uL (0.0-0.1); BANDED NEUTROPHILS % 11 %; LYMPHOCYTE # 0.3 K/uL (0.8-4.0); LYMPHOCYTE % 5 %; MONOCYTE # 0.3 K/uL (0.0-1.0); SEGMENTED NEUTROPHIL # 5.4 K/uL (1.4-9.0); SEGMENTED NEUTROPHIL % 78 %
--- NOTE | 2016-11-02 13:42 | NUR ---
71 Y/O MALE ADMITTED FOR SEPSIS. PT WENT TO DIALYSIS HERE AT THE HOSPITAL FOR DIALYSIS INITIALLY AND WILL THEN GO TO [facility]. PT IS A&OX3, BUT IS A BIT FORGETFUL WHEN ASKING ABOUT HIS MEDICAL HISTORY, JUST DIFFICULTY FINDING HIS WORDS SOMETIMES. NO KNOWN MEDICATION ALLERGIES. MEDICAL & SURGICAL HISTORY - BILAT CATARACT W. IOLI, LT FOREARM AV FISTULA, RECEIVED DIALYSIS M/W/F AT [facility]. PACEMAKER, IN, HTN, HIGH CHOL, SLEEP APNEA BUAT NO HOME C-PAP, PT STATES HE "DRANK A LOT & SMOKED A LOT (3-4PPD) WHEN HE WAS WORKING". HX SHINGLES. ADM EDUCATION NOT COMPLETED PT IS NOT FEELING WELL & IS IN DIALYSIS AT THE PRESENT TIME. REPORT GIVEN TO PT PRIMARY NURSE ON PCU.
[2016-11-02] MEDS ORDERED: ACID CONTROL150 MG PO (15:57)
[2016-11-02] MEDS ORDERED: NORVASC10 MG PO (16:05)
[2016-11-02] MEDS ORDERED: COREG25 MG PO (16:05)
[2016-11-02] MEDS ORDERED: PHOSLO667 MG PO (16:05)
[2016-11-02] MEDS ORDERED: DIOVAN320 MG PO (16:06)
[2016-11-02] MEDS ORDERED: LIPITOR10 MG PO (16:06)
[2016-11-02] MEDS ORDERED: ROPINIROLE HC0.25 MG PO (16:07)
[2016-11-02] MEDS ORDERED: LANTUS (IN100 UNIT/M SUB-Q (17:38)
--- NOTE | 2016-11-02 19:32 | NUR ---
Significant Event: AOx3, a bit slow to respond but answers all questions appropriately. VS and assessment as charted. Stands and moves at bedside with 2PA, is weak but tolerates. Has been weaned to RA and sats maintain >90%. IV antibiotic infusing to L) hand without complication. Family at bedside; pleasant and cooperative with cares. Follow up: Per plan of care.
--- NOTE | 2016-11-03 05:59 | NUR ---
Significant Event:PT VSS. RA>SATS >91%. ALERT AND ORIENTED. DENIES PAIN, SOB. BLOOD CULTURES ARE POSITIVE, RESULTS CALLED TO HOSPITALIST. IV ABX GIVEN ORDERED. L FA FISTULA, HD MWF. 1-2ASSIST, PT STATES HE IS WEAKER. STATES HE VOIDS SOME URINE. Follow up:CONT WITH PLAN OF CARE
[2016-11-03 10:35] LABS: BILIRUBIN URINE NEGATIVE (NEGATIVE); BLOOD URINE 50 /UL (NEGATIVE); COLOR URINE YELLOW (YELLOW); GLUCOSE URINE 250 mg/dL (NEGATIVE); KETONE URINE NEGATIVE (NEGATIVE); LEUKOCYTES URINE NEGATIVE /UL (NEGATIVE); NITRITE URINE NEGATIVE (NEGATIVE); PROTEIN URINE 500 mg/dL (NEGATIVE); TURBIDITY URINE CLEAR (CLEAR); UROBILINOGEN URINE 1 mg/dL (NORMAL)
[2016-11-03 10:41] LABS: RBC URINE 0-2 #/HPF (NEGATIVE)
[2016-11-03 10:42] LABS: AMORPHOUS URINE 1+ (NEGATIVE); BACTERIA URINE FEW (NEGATIVE); MUCUS URINE 1+ (NEGATIVE)
[2016-11-03 11:06] LABS: HEMATOCRIT 27.9 % (37.0-53.0); HEMOGLOBIN 9.2 g/dL (11.0-16.0); MCH 30.4 pg (27.0-34.0); MCV 92.1 fl (83.0-98.0); MPV 11.7 fl (9.4-12.4); PLATELET COUNT 70 K/uL (150-450); RBC 3.03 M/uL (3.50-5.50); WBC 6.2 K/uL (4.0-11.0)
[2016-11-03 11:19] LABS: ALBUMIN 2.5 gm/dL (3.5-5.0); ANION GAP 15.2 (10.0-19.0); PHOSPHORUS 2.8 mg/dL (2.5-4.9); POTASSIUM 4.2 mMol/L (3.7-5.1)
--- NOTE | 2016-11-03 11:28 | NUR ---
Introduced self and role of care management to patient and his daughter. He lives by himself in [place]. He states that he is able to do all his own ADL's. He drives himself to dialysis 3 times weekly. He states that he has lots of friends at the apartment complex where he lives that would help him if needed. He also has family that assists as needed. He plans on returning home on discharge. He denies any needs at this time. Will continue to follow.
[2016-11-03 11:33] LABS: CREATININE 6.6 mg/dL (0.6-1.3)
[2016-11-03 11:46] LABS: ABSOLUTE NEUTROPHIL CT (ANC) 5.5 K/uL (1.4-9.0); BANDED NEUTROPHIL # 1.8 K/uL (0.0-0.1); BANDED NEUTROPHILS % 29 %; LYMPHOCYTE # 0.4 K/uL (0.8-4.0); LYMPHOCYTE % 6 %; MONOCYTE # 0.3 K/uL (0.0-1.0); SEGMENTED NEUTROPHIL # 3.7 K/uL (1.4-9.0); SEGMENTED NEUTROPHIL % 59 %
[2016-11-03] MEDS ORDERED: ATROVENT NASAL0.03 % NOSE (15:08)
--- NOTE | 2016-11-03 17:58 | NUR ---
Significant Event: TEMP THIS AM 100.3 WITH PAIN TO LOWER BACK RATING 10/10. TYLENOL GIVEN WITH MINIMAL RELIEF. ORDER FOR TRAMADOL 50MG PRN. GIVEN X1 WITH BETTER RELIEF OF PAIN TO LOWER BACK, WORSENING WITH ACTIVITY. URINE SENT TO LAB FOR STUDY. OLIGURIA WITH ESRD, 75ML TOTAL UOP. NO BM NOTED. GOOD APPETITE TODAY. IV ATB CONTINUED ORDERED. FISTULA TO L) LOWER ARM. CT WITHOUT CONTRAST TO BE DONE THIS EVENING FOR BACK PAIN AND STAPH SEPSIS. Follow up: HEMODIALYSIS IN AM. ECHO IN AM.
[2016-11-04 04:43] LABS: HEMATOCRIT 27.2 % (37.0-53.0); MCH 30.3 pg (27.0-34.0); MCHC 33.1 gm/dL (32.0-36.5); MCV 91.6 fl (83.0-98.0); MPV 13.2 fl (9.4-12.4); PLATELET COUNT 69 K/uL (150-450); RBC 2.97 M/uL (3.50-5.50); RDW-CV 14.9 % (11.9-14.6)
[2016-11-04 05:22] LABS: ALBUMIN 2.3 gm/dL (3.5-5.0); ANION GAP 15.2 (10.0-19.0); CALCIUM 8.3 mg/dL (8.5-10.5); PHOSPHORUS 2.9 mg/dL (2.5-4.9); POTASSIUM 4.2 mMol/L (3.7-5.1)
[2016-11-04 05:34] LABS: ABSOLUTE NEUTROPHIL CT (ANC) 5.7 K/uL (1.4-9.0); BANDED NEUTROPHIL # 2.5 K/uL (0.0-0.1); BANDED NEUTROPHILS % 35 %; LYMPHOCYTE % 14 %; MONOCYTE # 0.3 K/uL (0.0-1.0); SEGMENTED NEUTROPHIL # 3.2 K/uL (1.4-9.0); SEGMENTED NEUTROPHIL % 46 %
--- NOTE | 2016-11-04 16:53 | NUR ---
Significant Event: PT A/O X3. VSS. PT OFF UNIT FOR DIALYSIS APPROX [phone]. PT VERY FATIGUED POST DIALYSIS. FRIENDS/FAMILY VISIT OFF/ON THIS AFTERNOON. ECHO COMPLETE. CONSULT INFECT. DISEASE. CALL LIGHT AND PERSONAL ITEMS IN REACH, QUESTIONS/CONCERNS ADDRESSED THIS TOD. CHANGES TO ANTIBIOTICS BASED ON CULTURES - STREP. Follow up: ENCOURAGE ACTIVITY TOLERATE. CONTINUE TO MONITER, CONTINUE PER PLAN OF CARE
[2016-11-05 04:19] LABS: BASOPHIL % 0.2 %; EOSINOPHIL # 0.1 K/uL (0.0-0.5); EOSINOPHIL % 1.7 %; HEMATOCRIT 27.2 % (37.0-53.0); HEMOGLOBIN 9.1 g/dL (11.0-16.0); IMMATURE GRANULOCYTE # 0.1 K/uL (0.0-0.3); IMMATURE GRANULOCYTE % 0.8 %; LYMPHOCYTE # 0.8 K/uL (0.8-4.0); LYMPHOCYTE % 12.6 %; MCH 29.9 pg (27.0-34.0); MCHC 33.5 gm/dL (32.0-36.5); MCV 89.5 fl (83.0-98.0); MONOCYTE # 0.8 K/uL (0.0-1.0); MONOCYTE % 12.6 %; MPV 11.7 fl (9.4-12.4); NEUTROPHIL # (ANC) 4.8 K/uL (1.4-9.0); NEUTROPHIL % 72.1 %; NRBC % 0 /100WBC (0-0.00); RBC 3.04 M/uL (3.50-5.50); RDW-CV 14.7 % (11.9-14.6); WBC 6.6 K/uL (4.0-11.0)
[2016-11-05 04:22] LABS: PLATELET COUNT 91 K/uL (150-450)
[2016-11-05 04:29] LABS: CALCIUM 8.2 mg/dL (8.5-10.5); PHOSPHORUS 3.1 mg/dL (2.5-4.9)
--- NOTE | 2016-11-05 04:31 | NUR ---
Significant Event: Patient in bed throughout entire shift, did sit up at edge of bed for less than 30 minutes, repositions self without trouble. Patient denies pain, denies shortness of breath on RA. O2 91-94 throughout entire shift on RA. Dinner SS insulin given late DT late supper and HS SS insulin adjusted accordingly to allow for more accurate results. No urine output on this shift. Patient talkative and cooperative with cares. Tolerates IV abx without issue. Follow up: Continue to monitor per POC
[2016-11-05 04:33] LABS: CREATININE 5.9 mg/dL (0.6-1.3)
--- NOTE | 2016-11-05 10:28 | NUR ---
PT DISMISSED PER BED TO U 6318. REPORT CALLED TO MAXX, PT CONT TO DENY C/O PAIN & IS DROWSY. DAUGHTER CALLED FOR UPDATE DURING TRANSFER, TRANSFERRED HER TO LIAISON OFFICER SO SHE CAN REACH DR. JOY.
--- NOTE | 2016-11-05 15:54 | NUR ---
Called and spoke with Kylah at [facility] to set up outpatient antibiotics for 6 weeks. Explained that patient would need to come in after his dialysis run and usually gets back to [place] between 4-4:30. Orders faxed. She asked that patientor elliot call tomorrow when the get rady to leave the hospital and they will set up a time to start his antibiotic tomorrow.
--- NOTE | 2016-11-05 18:36 | NUR ---
Significant Event: PT A/O X3, VSS, PT NPO FOR PROCEDURE - PT OFF UNIT FOR TRAE APPROX [phone], PT THEN OFF UNIT FOR POWERLINE PLACEMENT - APPROX [phone]. TRAE SHOWED VEG ON POST MITRAL VALVE. D/C CARB COUNT, CONTINUE SS, AND START LONG ACTING. CONTINUE IV ANTIBIOTICS. CONSULT CARE MGT FOR OUT PATIENT ADJUNCT SOCIOLOGY PROFESSOR ANTIBIOTICS. Follow up: DIALYSIS TOMORROW. POSSIBLE D/C TOMORROW AFTER DIALYSIS. CONTINUE TO MONITER, CONTINUE PER PLAN OF CARE,
--- NOTE | 2016-11-06 05:58 | NUR ---
Significant Event: Patient alert and oriented throught shift. denies pain and shortness of breath. On RA. no urine output on this shift. no bm on this shift. dialysys today. lungs clear dim. possble dc after dialysis Follow up:dc after dialysis?
[2016-11-06 06:03] LABS: ANION GAP 16.5 (10.0-19.0); CALCIUM 8.1 mg/dL (8.5-10.5); PHOSPHORUS 3.9 mg/dL (2.5-4.9); POTASSIUM 4.5 mMol/L (3.7-5.1)
[2016-11-06 06:05] LABS: ALBUMIN 1.7 gm/dL (3.5-5.0); CREATININE 7.8 mg/dL (0.6-1.3)
[2016-11-06 06:24] LABS: BASOPHIL % 0.2 %; EOSINOPHIL # 0.1 K/uL (0.0-0.5); EOSINOPHIL % 1.6 %; HEMATOCRIT 27.2 % (37.0-53.0); HEMOGLOBIN 9.3 g/dL (11.0-16.0); IMMATURE GRANULOCYTE # 0.1 K/uL (0.0-0.3); IMMATURE GRANULOCYTE % 1.2 %; LYMPHOCYTE # 0.7 K/uL (0.8-4.0); LYMPHOCYTE % 15.9 %; MCH 30.5 pg (27.0-34.0); MCHC 34.2 gm/dL (32.0-36.5); MCV 89.2 fl (83.0-98.0); MONOCYTE # 0.6 K/uL (0.0-1.0); MONOCYTE % 12.7 %; MPV 11.6 fl (9.4-12.4); NEUTROPHIL % 68.4 %; NRBC % 0 /100WBC (0-0.00); RBC 3.05 M/uL (3.50-5.50); RDW-CV 15.3 % (11.9-14.6); WBC 4.3 K/uL (4.0-11.0)
[2016-11-06 06:28] LABS: PLATELET COUNT 129 K/uL (150-450)
--- NOTE | 2016-11-06 17:26 | NUR ---
Significant Event: SBP 150-170'S. RATES 70-80'S. AFEBRILE. ON RA WITH LUNGS CLEAR/DIM. C/O 10/10 BACK PAIN ON SCALE WITH PERCOCET 2 TABS GIVEN THEN OFF FLOOR TO DIALYSIS. 1LITER REMOVED. DR PEDROZA CONSULTED DR DUARTE FOR DIFFICULTY RUNNING DIALYSIS WITH L) LOWER ARM FISTULA. PER MEDICAL BILLING SPECIALIST REPORT, FISTULA WORKS WELL WITH BRUIT AND THRILL. TELFA DRESSING AND TEGADERM TO FISTULA SITE WITH OOZING TO DIALYSIS PUNCTURE SITES X2. R) CHEST PICC SL'D. PIV TO R) HAND SL'D WITH IV ATB CONTINUED. BACK PAIN AGAIN 05/25 WITH RETURN TO ROOM AFTER MEDICAL BILLING SPECIALIST. VALIUM 2.5MG GIVEN PO. PATIENT NOW DISORIENTED TO TIME AND PLACE WELL HALLUCINATING. FAMILY UPDATED OF NO DISMISSAL TODAY. BED ALARM ON. VSS. ACCUCHECKS ACHS. Follow up: CONTINUE TO MONITOR NEURO STATUS. BED ALARM ON AT ALL TIMES. PERCOCET Q6HR SCHEDULED FOR BACK PAIN.
--- NOTE | 2016-11-07 04:29 | NUR ---
Patient alert but not oriented to place or time only sometimes self. Patient thinks he is at home most of the time. Lungs clear. Bowel sounds present. No void this shift. Fistula still ozzing blood reinforced dressing x1. Percocet x2. Lidocaine patch to lower back. Picc line to Rt subclavian.
[2016-11-07 05:31] LABS: ALBUMIN 2.2 gm/dL (3.5-5.0); ANION GAP 16.8 (10.0-19.0); CALCIUM 8.5 mg/dL (8.5-10.5); PHOSPHORUS 3.5 mg/dL (2.5-4.9); POTASSIUM 3.8 mMol/L (3.7-5.1)
[2016-11-07 05:35] LABS: BASOPHIL % 0.6 %; EOSINOPHIL # 0.2 K/uL (0.0-0.5); HEMATOCRIT 26.1 % (37.0-53.0); IMMATURE GRANULOCYTE # 0.1 K/uL (0.0-0.3); IMMATURE GRANULOCYTE % 1.1 %; LYMPHOCYTE # 0.7 K/uL (0.8-4.0); LYMPHOCYTE % 12.8 %; MCH 30.4 pg (27.0-34.0); MCHC 34.5 gm/dL (32.0-36.5); MCV 88.2 fl (83.0-98.0); MONOCYTE # 0.7 K/uL (0.0-1.0); MPV 11.3 fl (9.4-12.4); NEUTROPHIL # (ANC) 3.8 K/uL (1.4-9.0); NEUTROPHIL % 69.5 %; NRBC % 0 /100WBC (0-0.00); RBC 2.96 M/uL (3.50-5.50); RDW-CV 15.6 % (11.9-14.6); WBC 5.4 K/uL (4.0-11.0)
[2016-11-07 05:37] LABS: PLATELET COUNT 183 K/uL (150-450)
--- NOTE | 2016-11-07 15:22 | NUR ---
A-SCREENED D/T LOS DIALYSIS MWF. PT WAS TO BE D/C YESTERDAY, BUT PT CAME HAD A PROCEDURE DONE AND HAD C/O BACK PAIN. OVERNIGHT, PT WAS VERY CONFUSED; HALDOL WAS GIVEN. HT: 63 IN. WT: 64.9 KG. BMI: 25.3. WT IS STABLE LABS: NA 136, K+ 3.8, GLU 113, BUN 30, RETORT LOADER 5.0, ALB 2.2 MEDS: SEROQUEL, MSCONTIN, EPOGEN, LEVEMIR, NOVOLOG, MORPHINE, REQUIP, LIPITOR, PHOSLO, NORCO DIET RX: RENAL. PO INTAKE UP TO YESTERDAY HAD BEEN 50-75% FOR THE MOST PART. PT REFUSED MEALS YESTERDAY D/T C/O BACK PAIN. PT DID HAVE 75% OF HIS BREAKFAST THIS AM, BUT DID NOT LIKE HIS LUNCH. PER RN REPORT, PT IS STARTING TO BECOME MORE CLEAR AND WILL HAVE HIM ORDER HIS MEAL FOR THIS EVENING INSTEAD OF GETTING A HOUSE TRAY. EST NUTR NEEDS: [id number] KCALS (30-35 KCALS/KG) 65-78 GM PROTEIN (1.0-1.2 GM/KG) 1 ML FLUID/KCAL D-PT AT NUTRITION RISK W/INCREASED NUTRIENT NEEDS R/T ALTERED GI FXN AEB HD I-EXPECT IMPROVED PO INTAKE W/PT'S MENTAL STATUS GETTING BETTER. WILL HOLD OFF STARTING NUTRITION SUPPLEMENTS AT THIS TIME M/E-GOAL: PO INTAKE >/=50% FOR DURATION OF ADMIT 1)F/U W/PO INTAKE IN 1-2 DAYS; IF PO INTAKE HAS NOT IMPROVED TO >/=50% WILL ADD NUTRITION SUPPLEMENTS 2)ASSIST NEEDED
--- NOTE | 2016-11-07 17:13 | NUR ---
Significant Event: THIS MORNING PATIENT CONTINUES TO BE CONFUSED TO TIME/PLACE/EVENT. AFTER REST THIS MORNING, PATIENT TOOK SHOWER AND SAT IN CHAIR FOR 4 HOURS TODAY. NO RELIEF OF LOWER BACK PAIN WITH PERCOCET. 1MG IV MS GIVEN AND MS CONTIN INITIATED WITH PATIENT RELAXED AND SLEPT MOST OF AFTERNOON. PICC TO R) CHEST WITH NS AT TKO FOR Q4HR ANTIBIOTICS. PT/OT ORDERED TODAY, AMBULATE WITH 1PA WITH WALKER AND GAIT BELT. LARGE BM TODAY. FISTULA TO LEFT ARM OPEN TO AIR. NO BLEEDING TO SITE FROM FISTULAGRAM YESTERDAY. ACHS ACCUCHECKS. Follow up: CONT IV ATB. PAIN CONTROL WITH MS IVP AND MS CONTIN. MONITOR PER PLAN OF CARE.
--- NOTE | 2016-11-08 04:48 | NUR ---
DISORIENTED TO TIME. HR 70-80s. SBP 140-150s. ROOM AIR. AFEBRILE. SCHEDULED MS GIVEN. LIDOCANE PATCH TO LOWER BACK. PICC TO R) CHEST FOR INTERMITTENED IV ABX. NO VOIDS. NO BMS.
[2016-11-08 05:01] LABS: ANION GAP 15.3 (10.0-19.0); CALCIUM 8.1 mg/dL (8.5-10.5); PHOSPHORUS 5.1 mg/dL (2.5-4.9); POTASSIUM 4.3 mMol/L (3.7-5.1)
[2016-11-08 05:05] LABS: ALBUMIN 1.6 gm/dL (3.5-5.0); CREATININE 6.6 mg/dL (0.6-1.3)
[2016-11-08 05:17] LABS: BASOPHIL % 0.5 %; EOSINOPHIL # 0.2 K/uL (0.0-0.5); EOSINOPHIL % 4.7 %; HEMATOCRIT 25.6 % (37.0-53.0); HEMOGLOBIN 8.7 g/dL (11.0-16.0); IMMATURE GRANULOCYTE # 0.1 K/uL (0.0-0.3); IMMATURE GRANULOCYTE % 1.4 %; LYMPHOCYTE # 0.6 K/uL (0.8-4.0); MCV 88.3 fl (83.0-98.0); MONOCYTE # 0.5 K/uL (0.0-1.0); MONOCYTE % 10.4 %; MPV 10.8 fl (9.4-12.4); NEUTROPHIL # (ANC) 3.1 K/uL (1.4-9.0); NRBC % 0 /100WBC (0-0.00); PLATELET COUNT 217 K/uL (150-450); RDW-CV 16.4 % (11.9-14.6); WBC 4.4 K/uL (4.0-11.0)
--- NOTE | 2016-11-08 16:52 | NUR ---
Significant Event: PATIENT VERY SLEEPY UNTIL MID-AFTERNOON. MORE ALERT AND AWAKE NOW. TALKING IN CLEARER SENTENCES. ORIENTED TO PERSON AND PLACE. VSS ON RA. TORADOL 30MG IV X1 GIVEN WITH COMPLETE RELIEF OF BACK PAIN WELL TYLENOL ES 1000MG GIVEN ORDERED, SCHEDULED ROUND CLOCK. PATIENT STATES THIS AFTERNOON HIS BACK FEELS STRONGER. PIV TO R) CHEST. VOID X1 AND BM X1 AFTER SUPPOSITORY TODAY AFTER C/O FULLNESS TO MD. Follow up: DIALYSIS IN AM. CARE MANAGEMENT TO TALK TO FAMILY ABOUT D/C PLAN WHEN READY. PAIN MANAGEMENT. EXIT ALARMS ON.
--- NOTE | 2016-11-09 04:20 | NUR ---
DISORIENTED TIME. HR 60-70s. SBP 100-110. ROOM AIR. AFEBRILE. L) LOWER ARM FISTULA. DIALYSIS MWF. SCHEDULED MS AND TYLENOL GIVEN. DENIES NEED FOR PRN PAIN MEDS. 1 SOFT BM. 1 UNMEASURABLE EMESIS. DENIES NEED FOR INTERVENTION.
[2016-11-09 04:26] LABS: ANION GAP 18.4 (10.0-19.0); CALCIUM 7.8 mg/dL (8.5-10.5); PHOSPHORUS 5.9 mg/dL (2.5-4.9); POTASSIUM 4.4 mMol/L (3.7-5.1)
[2016-11-09 04:27] LABS: ALBUMIN 1.6 gm/dL (3.5-5.0)
[2016-11-09 04:37] LABS: HEMATOCRIT 26.6 % (37.0-53.0); HEMOGLOBIN 9.1 g/dL (11.0-16.0); MCH 30.1 pg (27.0-34.0); MCHC 34.2 gm/dL (32.0-36.5); MCV 88.1 fl (83.0-98.0); MPV 10.5 fl (9.4-12.4); PLATELET COUNT 237 K/uL (150-450); RBC 3.02 M/uL (3.50-5.50); RDW-CV 17.2 % (11.9-14.6); WBC 9.4 K/uL (4.0-11.0)
[2016-11-09 06:29] LABS: ABSOLUTE NEUTROPHIL CT (ANC) 8.5 K/uL (1.4-9.0); BANDED NEUTROPHIL # 1.2 K/uL (0.0-0.1); BANDED NEUTROPHILS % 13 %; LYMPHOCYTE # 0.3 K/uL (0.8-4.0); LYMPHOCYTE % 3 %; MONOCYTE # 0.2 K/uL (0.0-1.0); SEGMENTED NEUTROPHIL # 7.2 K/uL (1.4-9.0); SEGMENTED NEUTROPHIL % 77 %
--- NOTE | 2016-11-09 14:01 | NUR ---
A - NUT F/U. DIALYSIS MWF. LABS: ACCUCHECK WNL>200, NA 131, GLU 161, BUN/CR 62/8.0, ALB 1.6, PHOS 5.9 MEDS: LEVEMIR, SSI, UNIPEN, BOWEL/NAUSEA DIET: RENAL. INTAKE: REF-100% NEEDS: [id number] KCAL, 65-78 G PRO D - INADEQUATE NUTRIENT INTAKE R/T DECREASED APPETITE AEB INTAKE RECORD. I - GOAL FOR INTAKE 50-75% BY NEXT ASSESSMENT. WILL ADD GLUCERNA TID TO INC NUTRIENT INTAKE. M/E - WILL MONITOR INTAKE F/U IN 3-5 DAYS.
--- NOTE | 2016-11-09 15:20 | NUR ---
Social visit with patient. He is slightly confused. He does state that he feels better and wants to go home. Will continue to follow.
--- NOTE | 2016-11-09 18:52 | NUR ---
Significant Event: Disoriented to time/place. [id number]. P-70 before dyalysis and 110s after dyalysis. 100.4 Fever at end of shift, blood cultures x 2 drawn. Room air. R) subclavian dual lumen line. Continuing nafacilin IV Q4HR. Patient is jaundiuced, LFTs and ammonia will be checked in AM. Up with Karolina/vashti.
[2016-11-09 19:44] LABS: HEMATOCRIT 24.2 % (37.0-53.0); HEMOGLOBIN 8.4 g/dL (11.0-16.0); MCH 30.8 pg (27.0-34.0); MCHC 34.7 gm/dL (32.0-36.5); MCV 88.6 fl (83.0-98.0); MPV 10.2 fl (9.4-12.4); PLATELET COUNT 255 K/uL (150-450); RBC 2.73 M/uL (3.50-5.50); RDW-CV 17.5 % (11.9-14.6); WBC 9.8 K/uL (4.0-11.0)
[2016-11-09 19:50] LABS: BICARBONATE 30.6 mmol/L (18.0-23.0); PCO2 44 mmHg (35-45); PO2 69 mmHg (80-90)
[2016-11-09 19:58] LABS: CALCIUM 8.4 mg/dL (8.5-10.5)
[2016-11-09 19:59] LABS: ANION GAP 16.1 (10.0-19.0); CREATININE 4.7 mg/dL (0.6-1.3); POTASSIUM 4.1 mMol/L (3.7-5.1)
[2016-11-09 20:23] LABS: ABSOLUTE NEUTROPHIL CT (ANC) 8.7 K/uL (1.4-9.0); BANDED NEUTROPHIL # 1.1 K/uL (0.0-0.1); BANDED NEUTROPHILS % 11 %; LYMPHOCYTE # 0.4 K/uL (0.8-4.0); LYMPHOCYTE % 4 %; MONOCYTE # 0.2 K/uL (0.0-1.0); SEGMENTED NEUTROPHIL # 7.6 K/uL (1.4-9.0); SEGMENTED NEUTROPHIL % 78 %
[2016-11-09 22:04] LABS: BICARBONATE 27.7 mmol/L (18.0-23.0); PCO2 39 mmHg (35-45); PO2 131 mmHg (80-90)
--- NOTE | 2016-11-09 23:28 | NUR ---
Patient assessed at 1920. Upon assessment, patient was not arousing to any stimuli. Sternal rub was performed, which failed to arouse the patient. Rapid reponse called at this time. Accucheck was 156. Temperature was elevated at 101.4 and 2L O2 initiated to keep O2 sats > 90% (he was mid 80's on room air). Dr. Farah present in the room and he ordered STAT CBC, BMP, CPK, ammonia, ABG's, and 2 sets of blood cultures. Patient also noted to be very rigid with generalized tremors; Dr. Farah ordered 0.5 mg IV Ativan x1 along with 1L NS bolus. Dr. Welch took over after Dr. Farah had to response to other rapid response and he ordered a prolactin level to rule out seizures. At this time, there was an order to perfrom CT of head and to transfer patient to ICU. Patient's daughter, Sarika, was notified at 1948 and I explained everything that had occured with the patient and notified her of what room he was going to in ICU. Report given to ICU nurse around 2049, in which the patient was already in his room ([id number]).
[2016-11-10 05:27] LABS: ALBUMIN 2.7 gm/dL (3.5-5.0); ANION GAP 17.1 (10.0-19.0); CALCIUM 8.3 mg/dL (8.5-10.5); PHOSPHORUS 3.6 mg/dL (2.5-4.9); POTASSIUM 4.1 mMol/L (3.7-5.1)
--- NOTE | 2016-11-10 05:30 | NUR ---
PT ARRIVED AT 2024 MINIMALLY RESPONSIVE, MAINTAINING OWN AIRWAY ON RA WITH SATS IN LOW 90S. PT DEVELOPED SNORING RESPIRATIONS, EVEN WITH IMPROVING LOC, SO 0.4 MG NARCAN GIVEN IV PER MD ORDER. LOC IMPROVEMENT SEEN, RESPIRATORY FUNCTION NOTED TO IMPROVE. PT KEPT ON 2L NC TO PREVENT DESATURATIONS. PT DISORIENTED TO TIME/PLACE, DELERIUM PRESENT. FORGETFUL AT ALL TIMES. TACHY IN 150S UPON ARRIVAL, SBP 170S; HR AND BP RETURNED TO NORMAL WITHIN 1H OF ARRIVAL TO UNIT. HYPOTENSION NOTED AT 2230, 25G ALBUMIN GIVEN PER MD ORDER WITH POSITIVE EFFECT. PT IMPULSIVE AT TIMES, BED ALARM ACTIVE. PT HAVING DIFFICULTY WITH THIN LIQUIDS THROUGH STRAW AND NEEDS REMINDERS TO SWALLOW; ORDER OBTAINED FOR SPEECH CONSULT. SEE FLOWSHEET FOR SKIN ASSESSMENT. LINES REMAIN INTACT AND PATENT. MATEO RODRIGUEZ RN
[2016-11-10 05:34] LABS: CREATININE 5.3 mg/dL (0.6-1.3)
[2016-11-10 05:40] LABS: ALBUMIN 2.7 gm/dL (3.5-5.0); TOTAL PROTEIN 6.3 g/dL (6.0-8.4)
[2016-11-10 05:42] LABS: TOTAL BILIRUBIN 8.6 mg/dL (0.0-1.5)
[2016-11-10 05:52] LABS: BASOPHIL % 0.3 %; EOSINOPHIL # 0.4 K/uL (0.0-0.5); EOSINOPHIL % 3.7 %; HEMATOCRIT 21.9 % (37.0-53.0); HEMOGLOBIN 7.5 g/dL (11.0-16.0); IMMATURE GRANULOCYTE # 0.1 K/uL (0.0-0.3); IMMATURE GRANULOCYTE % 1.1 %; LYMPHOCYTE # 1.1 K/uL (0.8-4.0); LYMPHOCYTE % 11.4 %; MCH 30.5 pg (27.0-34.0); MCHC 34.2 gm/dL (32.0-36.5); MONOCYTE # 0.6 K/uL (0.0-1.0); MONOCYTE % 5.9 %; MPV 10.7 fl (9.4-12.4); NEUTROPHIL # (ANC) 7.7 K/uL (1.4-9.0); NEUTROPHIL % 77.6 %; NRBC % 0 /100WBC (0-0.00); PLATELET COUNT 267 K/uL (150-450); RBC 2.46 M/uL (3.50-5.50)
[2016-11-10 15:38] LABS: HEMATOCRIT 21.4 % (37.0-53.0); MCH 30.5 pg (27.0-34.0); MCHC 34.6 gm/dL (32.0-36.5); MCV 88.1 fl (83.0-98.0); MPV 9.9 fl (9.4-12.4); PLATELET COUNT 236 K/uL (150-450); RBC 2.43 M/uL (3.50-5.50); RDW-CV 18.2 % (11.9-14.6); WBC 8.1 K/uL (4.0-11.0)
[2016-11-10 15:40] LABS: HEMOGLOBIN 7.4 g/dL (11.0-16.0)
[2016-11-10 15:55] LABS: ALBUMIN 3.3 gm/dL (3.5-5.0); ANION GAP 14.1 (10.0-19.0); CALCIUM 8.3 mg/dL (8.5-10.5); CREATININE 3.3 mg/dL (0.6-1.3); PHOSPHORUS 2.4 mg/dL (2.5-4.9); POTASSIUM 4.1 mMol/L (3.7-5.1)
[2016-11-10 16:00] LABS: ABSOLUTE NEUTROPHIL CT (ANC) 6.7 K/uL (1.4-9.0); LYMPHOCYTE # 0.9 K/uL (0.8-4.0); LYMPHOCYTE % 11 %; MONOCYTE # 0.3 K/uL (0.0-1.0); SEGMENTED NEUTROPHIL # 6.7 K/uL (1.4-9.0); SEGMENTED NEUTROPHIL % 83 %
--- NOTE | 2016-11-10 16:50 | NUR ---
SIGNIFICANT EVENT: FROM [id number]: PATIENT ALERT TO VOICE, PUPILS EQUAL AND REACTIVE. ANSWERS ORIENTATION QUESTIONS APPROPRIATELY. MADE FORGETFUL COMMENTS AT TIMES. SPEECH SLOW AND MUMMBLED. DENIES ANY NUMBNESS, TINGLING, OR PAIN. NO FACIAL ASYMMETRY. NODS YES/NO APPROPRIATELY. DROWSY AT TIMES BUT WOULD OPEN EYES TO VOICE AND SPONTANEOUSLY. PATIENT WWAS FOLLOWING COMMANDS IN ALL 4 EXTREMITIES, EQUAL STRENGTH THROUGHOUT. MOVES ALL 4 EXTREMITIES SPONTANEOUSLY. PATIENT HAS BEEN IN SINUS RHYTHM, OCCASIONALLY A. PACED. BP HAD BEEN NORMOTENSIVE, SBP 90-130S, MAP>65. PULSES PALPABLE THROUGHOUT. GENERALIZED 1+ EDEMA. AFEBRILE. PATIENT HAS BEEN ON ROOM AIR, SATS MID TO UPPER 90S. RR WITHIN NORMAL. SPONT. COUGH, NON PRODUCTIVE. LUNGS CLEAR. BOWEL SOUNDS ACTIVE, NO BM. RENAL DIET, TOLERATING WELL, DECREASED APETITE. SPEECH EVAL THIS AM COMPLETED BY SPEECH THERAPIST. PATIENT PASSED RENAL DIET, NO COMPLICATIONS. NO URINE OUTPUT. NO NEW SKIN ISSUE. DIALYSIS AT BEDSIDE, HALF TREATMENT RECIEVED RELATED TO NEURO CHANGES DETAILED BELOW 1400-NOW: PATIENT MORE DROWSY, NO SEDATION MEDICATIONS GIVEN. PUPILS EQUAL AND REACTIVE. OPENS EYES TO PAIN. DOES NOT ANSWER QUESTIONS APPROPRIATELY. STATES NO TO ALL QUESTIONS. MOVES ALL 4 EXTREMITIES SPONANEOUSLY, DOES NOT FOLLOW COMMANDS. HR REMAINS SR 70-90S, SINUS RHYTHM. BP HYPERTENSIVE, SBP UP TO 193. NITRO DRIP STARTED AT 5MCG/MIN. REMAINS AFEBRILE. RESP STATUS UNCHANGED. AT 15[address]IENT SLIGHT[address] MORE ALERT. [address] SAMS AND DR. PEDROZA NOTIFIED OF ALL NEURO CHANGES AND HYPERTENSION. BOTH CAME TO ASSESS PATIENT. FOLLOW UP: CONTINUE TO MONITOR NEURO, RESP, AND CARDIO STATUS
[2016-11-11 05:14] LABS: ALBUMIN 2.6 gm/dL (3.5-5.0); ANION GAP 16.5 (10.0-19.0); MAGNESIUM 2.4 mg/dL (1.3-2.6); POTASSIUM 3.5 mMol/L (3.7-5.1); TOTAL PROTEIN 6.1 g/dL (6.0-8.4)
[2016-11-11 05:15] LABS: TOTAL BILIRUBIN 5.6 mg/dL (0.0-1.5)
[2016-11-11 05:18] LABS: BASOPHIL % 0.3 %; EOSINOPHIL # 0.3 K/uL (0.0-0.5); EOSINOPHIL % 3.7 %; IMMATURE GRANULOCYTE # 0.1 K/uL (0.0-0.3); IMMATURE GRANULOCYTE % 1.4 %; LYMPHOCYTE # 0.5 K/uL (0.8-4.0); LYMPHOCYTE % 5.9 %; MCV 87.4 fl (83.0-98.0); MONOCYTE # 0.5 K/uL (0.0-1.0); MONOCYTE % 5.7 %; MPV 10.3 fl (9.4-12.4); NEUTROPHIL # (ANC) 7.4 K/uL (1.4-9.0); NRBC % 0 /100WBC (0-0.00); PLATELET COUNT 274 K/uL (150-450); RBC 1.98 M/uL (3.50-5.50); RDW-CV 18.2 % (11.9-14.6); WBC 8.9 K/uL (4.0-11.0)
[2016-11-11 05:22] LABS: HEMATOCRIT 17.3 % (37.0-53.0); HEMOGLOBIN 6.1 g/dL (11.0-16.0); MCH 30.8 pg (27.0-34.0); MCHC 35.3 gm/dL (32.0-36.5)
--- NOTE | 2016-11-11 06:48 | NUR ---
PT CONTINUES TO HAVE FLUCTUATING LOC; AGITIATED AT BEGINNING OF SHIFT, PARANOID NEAR MIDDLE, AND SLEEPING AT END. VISUAL AND AUDITORY HALLUCINATIONS NOTED; AUDITORY HALLUCINATIONS SEEMS TO DISSAPPATE AROUND 2300. MOVES ALL EXTREMITIES, FOLLOWS COMMANDS, PERRL. HYPERTENSIVE THIS SHIFT REQUIRING NITRO GTT AT 150 MCG/MIN FOR MAJORITY OF SHIFT. AFTER 0445 BP BEGAN DROPPING AND NITRO GTT TITRATED TO 50 MCG/MIN BY 0615; BP STABLE AT THIS TIME. HR 110S UPON ASSUMING CARES, NOW IN LOW 70S. TMAX 101.3; NEUROLOGIC CHANGES APPEAR TO COINCIDE WITH FEVERS AND HYPERTENSIVE EPISODES. ON 2LNC, LUNGS CLEAR. INCONTINT OF STOOL X2 EPISODES THIS SHIFT. NO UOP. AREA ON SCROTUM IMPROVING. PICC DRESSING CHANGED THIS SHIFT. MATEO RODRIGUEZ RN
[2016-11-11 09:32] LABS: HEMATOCRIT 20.4 % (37.0-53.0); MCH 30.5 pg (27.0-34.0); MCHC 34.8 gm/dL (32.0-36.5); MCV 87.6 fl (83.0-98.0); PLATELET COUNT 289 K/uL (150-450); RBC 2.33 M/uL (3.50-5.50); WBC 9.6 K/uL (4.0-11.0)
[2016-11-11 09:36] LABS: HEMOGLOBIN 7.1 g/dL (11.0-16.0)
[2016-11-11 10:05] LABS: ABSOLUTE NEUTROPHIL CT (ANC) 8.6 K/uL (1.4-9.0); BANDED NEUTROPHILS % 10 %; LYMPHOCYTE # 0.2 K/uL (0.8-4.0); LYMPHOCYTE % 2 %; MONOCYTE # 0.1 K/uL (0.0-1.0); SEGMENTED NEUTROPHIL # 7.7 K/uL (1.4-9.0); SEGMENTED NEUTROPHIL % 80 %
--- NOTE | 2016-11-11 15:26 | NUR ---
Significant Event:TOOK OVER CARES AROUND 1320. PT IS AAOX3. NO HALLUCINATIONS. DOES C/O BLURRY VISION ON AND OFF. JAUNDICE NOTED TO SKIN AND EYES. PUPIL ARE EQUAL AND REACTIVE. ON NITRO GTT. SBP GOAL 150 OR LESS. GOOD PULSES. LUNGS ARE CLEAR AND DIMINISHED. ON 1L NC. ACTIVE BS. SMALL VOID. LG BM TODAY. NEED HEMATEST X3. SUTURES TO NECK AND REDNESS NOTED TO SCROTUM. PICC IN R) SUBCLAVIN. FISTULA TO LEFT LOWER ARM. Follow up:MONITOR BP AND PULSE
--- NOTE | 2016-11-12 04:39 | NUR ---
Significant Event: Patient A/O x3. No c/o pain for me. Continues on nitro gtt to keep SBP<150. PRN labetalol and order for vasotec to help with HTN. Afebrile. Up to bathroom with 1 assist, gait belt, and walker. Void x1 and loose stool. Need to obtain hematest x3. Rested well throughout shift. Follow up: Continue to monitor. Wean nitro.
[2016-11-12 06:13] LABS: MCV 87.4 fl (83.0-98.0); MPV 9.9 fl (9.4-12.4); RBC 1.91 M/uL (3.50-5.50); RDW-CV 18.6 % (11.9-14.6); WBC 7.9 K/uL (4.0-11.0)
[2016-11-12 06:16] LABS: HEMATOCRIT 16.7 % (37.0-53.0); HEMOGLOBIN 5.8 g/dL (11.0-16.0); MCH 30.4 pg (27.0-34.0); MCHC 34.7 gm/dL (32.0-36.5); PLATELET COUNT 223 K/uL (150-450)
[2016-11-12 06:35] LABS: ALBUMIN 2.4 gm/dL (3.5-5.0); ANION GAP 17.4 (10.0-19.0); CALCIUM 8.4 mg/dL (8.5-10.5); MAGNESIUM 2.3 mg/dL (1.3-2.6); POTASSIUM 4.4 mMol/L (3.7-5.1); TOTAL PROTEIN 6.1 g/dL (6.0-8.4)
[2016-11-12 06:36] LABS: CREATININE 6.7 mg/dL (0.6-1.3); TOTAL BILIRUBIN 3.6 mg/dL (0.0-1.5)
[2016-11-12 06:56] LABS: HEMATOCRIT 17.6 % (37.0-53.0); HEMOGLOBIN 6.2 g/dL (11.0-16.0)
[2016-11-12 07:06] LABS: INR - (THERAPEUTIC) 1.1 (0.9-1.1); PROTIME 11.4 SECONDS (9.6-11.1)
[2016-11-12 07:07] LABS: ABSOLUTE NEUTROPHIL CT (ANC) 6.7 K/uL (1.4-9.0); BANDED NEUTROPHIL # 0.9 K/uL (0.0-0.1); BANDED NEUTROPHILS % 12 %; LYMPHOCYTE # 0.2 K/uL (0.8-4.0); LYMPHOCYTE % 3 %; MONOCYTE # 0.4 K/uL (0.0-1.0); SEGMENTED NEUTROPHIL # 5.8 K/uL (1.4-9.0); SEGMENTED NEUTROPHIL % 73 %
--- NOTE | 2016-11-12 10:15 | NUR ---
A - NUT F/U. DIALYSIS. DECREASED APPETITE. MORE ORIENTED TODAY. PRBCS GIVEN. 1:1 @ MEALS PER BARREL RIFLER. LABS: ACCUCHECK 65->200, NA 132, BUN/CR 34/6.7, ALB 2.4, TOT BILI 3.6, ALK PHOS 300, PHOS 2.4, HGB/HCT 6.2/17.6 MEDS: IVF, LEVEMIR, SSI, PHOSLO, BOWEL/NAUSEA, CEFAZOLIN DIET: RENAL. INTAKE: REF-100% GLUERNA TID - DRINKING NEEDS: [id number] KCAL, 65-78 G PRO D - INADEQUATE NUTRIENT INTAKE R/T DECREASED APPETITE AEB INTAKE RECORD. I - GOAL FOR INTAKE 50-100% BY NEXT ASSESSMENT. WILL CONTINUE GLUCERNA TID M/E - WILL MONITOR INTAKE F/U IN 4-5 DAYS.
[2016-11-12 11:14] LABS: HEMATOCRIT 20.7 % (37.0-53.0)
[2016-11-12 11:16] LABS: HEMOGLOBIN 7.2 g/dL (11.0-16.0)
[2016-11-12 15:04] LABS: HEMATOCRIT 19.7 % (37.0-53.0)
--- NOTE | 2016-11-12 17:23 | NUR ---
Significant Event: PATIENT ALERT TO SELF ONLY. DENIES PAIN. ON NITRO GTT AT 150 MCG/MIN WITH GOAL TO KEEP SBP <150. WEAN NITRO. PACEMAKER PRESENT. LUNGS CLEAR BILATERALLY. ON 1L NC. RECEIVED HEMODIALYSIS. L) ARM FISTULA. SMALL VOID. NEED HEMETEST X2. LAB WILL DO ALL BLOOD DRAWS. R) SUBCLAVIAN CENTRAL LINE. Follow up: ACCU ACHS. AMBULATES 1A. RENAL DIET. POSSIBLE PCU TRANSFER WHEN NITRO IS DECREASED.
--- NOTE | 2016-11-13 04:32 | NUR ---
Significant Event: Patient oriented to place and person. Slightly drowsy. Follows commands. SBP 140s-160s on 150 mcg/min of nitroglycerin. Temp max 99.3. 1L NC. Clear lung sounds. No voids. Denies pain. Follow up: Dialysis today
[2016-11-13 06:31] LABS: BASOPHIL % 0.4 %; EOSINOPHIL # 0.3 K/uL (0.0-0.5); EOSINOPHIL % 4.3 %; HEMATOCRIT 19.1 % (37.0-53.0); IMMATURE GRANULOCYTE # 0.1 K/uL (0.0-0.3); IMMATURE GRANULOCYTE % 1.8 %; LYMPHOCYTE # 0.5 K/uL (0.8-4.0); LYMPHOCYTE % 7.1 %; MCH 30.6 pg (27.0-34.0); MCHC 35.1 gm/dL (32.0-36.5); MCV 87.2 fl (83.0-98.0); MONOCYTE # 0.6 K/uL (0.0-1.0); MONOCYTE % 8.7 %; MPV 10.5 fl (9.4-12.4); NEUTROPHIL # (ANC) 5.6 K/uL (1.4-9.0); NEUTROPHIL % 77.7 %; NRBC % 0 /100WBC (0-0.00); PLATELET COUNT 258 K/uL (150-450); RBC 2.19 M/uL (3.50-5.50); RDW-CV 18.3 % (11.9-14.6); WBC 7.2 K/uL (4.0-11.0)
[2016-11-13 06:34] LABS: HEMOGLOBIN 6.7 g/dL (11.0-16.0)
[2016-11-13 06:50] LABS: ALBUMIN 2.3 gm/dL (3.5-5.0); ALK PHOS 339 IU/L (33-138); ALT < 10 IU/L (12-78); ANION GAP 15.7 (10.0-19.0); AST 28 IU/L (10-40); BLOOD UREA NITROGEN 22 mg/dL (6-24); CALCIUM 8.3 mg/dL (8.5-10.5); CHLORIDE 91 mMol/L (96-110); CO2 27 mMol/L (22-32); CREATININE 5.2 mg/dL (0.6-1.3); ESTIMATED GFR (MDRD EQUATION) 11; MAGNESIUM 2.1 mg/dL (1.3-2.6); POTASSIUM 3.7 mMol/L (3.7-5.1); SODIUM 130 mMol/L (135-145); TOTAL BILIRUBIN 2.7 mg/dL (0.0-1.5); TOTAL PROTEIN 6.2 g/dL (6.0-8.4)
--- NOTE | 2016-11-13 12:10 | NUR ---
NTG weaned down to 131/62 map 84 HR 88. turned NTG back up to 140 mcg around 1400.
[2016-11-13 15:38] LABS: HEMOGLOBIN 8.9 g/dL (11.0-16.0)
[2016-11-13 15:43] LABS: HEMATOCRIT 25.3 % (37.0-53.0)
--- NOTE | 2016-11-13 19:02 | NUR ---
Significant Event:Patient ambulated in palacio and up in chair. Dialysis today. Left arm fistula good bruit and thrill. Able to wean NTG IV to 100 mcg/min then increased to 140 mcg/min with in 1-2 hrs after decreasing. Klonopin given and Losinipril with no change in SBP. Family at bedside. Patient drowsy. Accuchecks untreated. Eats poorly. Hand one loose brown stool unable to hematest. One unit of PRBC given hgb 6.7 now 8.9.
--- NOTE | 2016-11-14 02:14 | NUR ---
Significant Event: Patient is alert and oriented to self, place, and . Conversationally appropriate. Denies pain. Lidocaine patch removed and to be readdressed with morning hospitalist as to schedule, etc. Patient ambulates 1-2 PA, gaitbelt, walker. Slightly unsteady. Large BM this shift. Generalized weakness. Left arm fistula good bruit and thrill. On room air. Lungs clear and diminished. Called hospitalist prior to 1999 to report SBP 190s (no results from prior orders). Received orders for Cardene gtt and to wean off Nitro and then D/C. Shut off Nitro at 2240. Cardene infusing at 5. PICC to right chest double lumen with good blood return. Accucheks ACHS-received 2 units at bedtime. Poor appetite. Open area to scrotum-aloe vesta applied. Repositions self in bed. Edema to bilateral upper extremities. Follow up: need 2 hematests, ACHS accucheks, Cardene gtt, alarms
[2016-11-14 06:26] LABS: BASOPHIL # 0.1 K/uL (0.0-0.2); BASOPHIL % 0.6 %; EOSINOPHIL # 0.4 K/uL (0.0-0.5); EOSINOPHIL % 4.6 %; HEMOGLOBIN 8.7 g/dL (11.0-16.0); IMMATURE GRANULOCYTE # 0.2 K/uL (0.0-0.3); IMMATURE GRANULOCYTE % 2.5 %; LYMPHOCYTE # 0.7 K/uL (0.8-4.0); MCHC 34.8 gm/dL (32.0-36.5); MCV 86.2 fl (83.0-98.0); MONOCYTE # 0.8 K/uL (0.0-1.0); MONOCYTE % 9.6 %; MPV 10.2 fl (9.4-12.4); NEUTROPHIL # (ANC) 6.1 K/uL (1.4-9.0); NEUTROPHIL % 74.7 %; NRBC % 0.2 /100WBC (0-0.00); PLATELET COUNT 308 K/uL (150-450); RDW-CV 17.8 % (11.9-14.6); WBC 8.1 K/uL (4.0-11.0)
[2016-11-14 06:42] LABS: SODIUM 135 mMol/L (135-145)
[2016-11-14 06:43] LABS: ALBUMIN 2.4 gm/dL (3.5-5.0); ANION GAP 13.6 (10.0-19.0); AST 32 IU/L (10-40); BLOOD UREA NITROGEN 12 mg/dL (6-24); CALCIUM 8.7 mg/dL (8.5-10.5); CHLORIDE 98 mMol/L (96-110); CO2 27 mMol/L (22-32); CREATININE 3.7 mg/dL (0.6-1.3); MAGNESIUM 2.1 mg/dL (1.3-2.6); POTASSIUM 3.6 mMol/L (3.7-5.1); TOTAL BILIRUBIN 2.2 mg/dL (0.0-1.5); TOTAL PROTEIN 6.7 g/dL (6.0-8.4)
[2016-11-14 06:44] LABS: ALK PHOS 469 IU/L (33-138); ALT < 10 IU/L (12-78); ESTIMATED GFR (MDRD EQUATION) 16
--- NOTE | 2016-11-14 16:54 | NUR ---
Significant Event: Alert and oriented. Weaning Cardene for SBP <150. VSS. Up in room with 1PA. Taking PO well. Pleasant and cooperative. Family at bedside throughout the day. Orders received for transfer to PCU. Follow up: continue
[2016-11-15 05:30] LABS: ALBUMIN 2.3 gm/dL (3.5-5.0); ANION GAP 14.3 (10.0-19.0); AST 29 IU/L (10-40); CALCIUM 8.8 mg/dL (8.5-10.5); CHLORIDE 96 mMol/L (96-110); CO2 25 mMol/L (22-32); MAGNESIUM 2.1 mg/dL (1.3-2.6); POTASSIUM 4.3 mMol/L (3.7-5.1); SODIUM 131 mMol/L (135-145); TOTAL BILIRUBIN 1.9 mg/dL (0.0-1.5); TOTAL PROTEIN 6.6 g/dL (6.0-8.4)
[2016-11-15 05:31] LABS: ALK PHOS 461 IU/L (33-138); ALT < 10 IU/L (12-78); BLOOD UREA NITROGEN 25 mg/dL (6-24); CREATININE 5.2 mg/dL (0.6-1.3); ESTIMATED GFR (MDRD EQUATION) 11
[2016-11-15 05:49] LABS: BASOPHIL # 0.1 K/uL (0.0-0.2); EOSINOPHIL # 0.4 K/uL (0.0-0.5); HEMATOCRIT 25.6 % (37.0-53.0); HEMOGLOBIN 8.7 g/dL (11.0-16.0); IMMATURE GRANULOCYTE # 0.2 K/uL (0.0-0.3); IMMATURE GRANULOCYTE % 2.3 %; LYMPHOCYTE # 0.8 K/uL (0.8-4.0); LYMPHOCYTE % 10.7 %; MCH 30.3 pg (27.0-34.0); MCV 89.2 fl (83.0-98.0); MONOCYTE # 0.7 K/uL (0.0-1.0); MONOCYTE % 9.7 %; MPV 10.7 fl (9.4-12.4); NEUTROPHIL % 71.3 %; NRBC % 0.3 /100WBC (0-0.00); PLATELET COUNT 345 K/uL (150-450); RBC 2.87 M/uL (3.50-5.50); RDW-CV 18.5 % (11.9-14.6)
--- NOTE | 2016-11-15 07:21 | NUR ---
Significant Event: Patient alert and oriented. Denies pain. Pressures 150-160s/60-70s. Heart rates 60-70s. Remains on room air and afebrile. Up with 1 assist. PICC to right subclavain. Large bowel movement. Hematest sent-results positive. Fistula to left arm positive for thrill and bruite. Pleasant and cooperative with cares. Follow up: continue to monitor
--- NOTE | 2016-11-15 17:20 | NUR ---
Significant Event:A/O X 3. Ambulates with 1 assist, up to chair for meals, ambulates in room. HTN this afternoon, Clonidine given for SBP 185 x 1 around 1700. O2 > 90% on RA. Tolerating PO fluids and nutrition. BS WNL. Bladdder scanned for 16 ml, MOd BM today. Norvasc 5 mg given x 1, new dose for 10 mg ordered. Reports no pain. Many family visitors. Complete bath today. 3rd hematest sent. Follow up:Clonidine for SBP > 180.
--- NOTE | 2016-11-16 05:11 | NUR ---
Significant Event: PATIENT IS ALERT AND ORIENTED THROUGHOUT SHIFT. IS VERY PLEASANT. DENIES PAIN. UP WITH 1 ASSIST WITH WALKER AND GAIT BELT. PATIENT IS ON HEMODIALYSIS. SHUT TO LEFT FOREARM. DOES NOT VOID. BMX2 LIQUID. MIRALAX HELD. HYPERTENSIVE. ACCUCHECK ACHS. HS BG 140. PICC TO RIGHT CHEST. HEMATEST X2 POSITIVE. LIDO PATCH TO LOWER BACK. Follow up:
[2016-11-16 05:17] LABS: ALBUMIN 2.2 gm/dL (3.5-5.0); ANION GAP 16.7 (10.0-19.0); AST 29 IU/L (10-40); CALCIUM 8.6 mg/dL (8.5-10.5); CHLORIDE 98 mMol/L (96-110); CO2 21 mMol/L (22-32); MAGNESIUM 2.1 mg/dL (1.3-2.6); POTASSIUM 4.7 mMol/L (3.7-5.1); SODIUM 131 mMol/L (135-145); TOTAL BILIRUBIN 1.7 mg/dL (0.0-1.5); TOTAL PROTEIN 6.5 g/dL (6.0-8.4)
[2016-11-16 05:22] LABS: ALK PHOS 475 IU/L (33-138); ALT < 10 IU/L (12-78); BLOOD UREA NITROGEN 41 mg/dL (6-24); CREATININE 6.7 mg/dL (0.6-1.3); ESTIMATED GFR (MDRD EQUATION) 8
[2016-11-16 05:27] LABS: BASOPHIL % 0.6 %; EOSINOPHIL # 0.3 K/uL (0.0-0.5); EOSINOPHIL % 4.5 %; HEMATOCRIT 24.4 % (37.0-53.0); HEMOGLOBIN 8.1 g/dL (11.0-16.0); IMMATURE GRANULOCYTE # 0.1 K/uL (0.0-0.3); IMMATURE GRANULOCYTE % 1.4 %; LYMPHOCYTE # 0.6 K/uL (0.8-4.0); LYMPHOCYTE % 9.1 %; MCH 30.5 pg (27.0-34.0); MCHC 33.2 gm/dL (32.0-36.5); MCV 91.7 fl (83.0-98.0); MONOCYTE # 0.5 K/uL (0.0-1.0); MONOCYTE % 7.9 %; MPV 10.9 fl (9.4-12.4); NEUTROPHIL # (ANC) 5.1 K/uL (1.4-9.0); NEUTROPHIL % 76.5 %; NRBC % 0 /100WBC (0-0.00); PLATELET COUNT 349 K/uL (150-450); RBC 2.66 M/uL (3.50-5.50); WBC 6.6 K/uL (4.0-11.0)
--- NOTE | 2016-11-16 07:58 | NUR ---
PATIENT ALERT AND ORIENTED X3 NOW. FOLLOWS ALL COMMANDS. DENIES ANY NUMBNESS, TINGLING, OR PAIN. CONVERSATIONALLY APPROPRIATE. IN SINUS RHYTHM, HR IN 70S. BP 161/77. PULSES PALPABLE THROUGHOUT. ON ROOM AIR, SATS 95%. 1 LOOSE BM PRIOR TO LEAVING ICU TO GO TO DIALYSIS. PATIENT TRANSFERED TO DIALYSIS PER TRANSPORT TEEM MEMEBER VIA WHEEL CHAIR. FAMILY AWARE
--- NOTE | 2016-11-16 16:52 | NUR ---
SIGNIFICANT EVENT: PATIENT ALERT, ORIENTED X3. OCCASIONALLY DISORITED TO TIME BUR RE-ORIENTS FAST AND EASILY. PATIENT OPENS EYES SPONTANEOUSLY AND TO VOICE. PUPILS EQUAL AND REACTIVE. PATIENT MOVES ALL 4 EXTREMITIES SPONTANEOUSLY AND TO COMMANDS. GENERALIZED WEAKNESS, EQUAL STRENGTH THROUGHOUT. UP TO BATHROOM WITH GAITBELT, WALKER, AND 1 PERSON ASSIST. PATIENT HAS NO COMPLAINED OF PAIN THROUGHOUT THE SHIFT, SCHEDULED TYLENOL ADMINISTRED, RELIEF NOTED. PATIENT HAS BEEN IN SINUS RHYTHM, HR 70-80S. PULSES PALPABLE THROUGHOUT. BP SLIGHTLY HYPERTENSIVE, SBP 150-160S, DR HORAN AWARE. AFEBRILE. PATIENT CONTINUES TO BE ON ROOM AIR, SATS MID TO UPPER 90S. TURN, COUGH, AND DEEP BREATHING ENCOURAGED. BOWEL SOUNDS PRESENT, 2 LOOSE BMS TODAY. RENAL DIET, TOLERATING WELL. LOW URINE OUTPUT, MD AWARE. NO NEW SKIN ISSUES. PATIENT REPOSITIONED AT LEAST EVERY 2 HOURS. FOLLOW UP: CONTINUE TO MONITOR, TRANSFER TO PCU
--- NOTE | 2016-11-16 18:16 | NUR ---
PLEASE ALSO READ SHIFT SUMMARY. NO CHANGES. PATIENT TRANSFERED TO MSU AT 1750 WITH ALL BELONGINGS. PATIENT ALERT AND ORIENTED X3. FOLLOWS ALL COMMANDS. DENIES ANY PAIN. ALL BELONINGS SENT WITH PATIENT. BED SIDE REPORT COMPLETED AND CHART CHECKED WITH POLLY MSU RN. AWARE OF TRANSFER. FAMILY, SPOKE TO JULIENNE, DAUGHTER. AWARE OF TRANSFER.
--- NOTE | 2016-11-16 23:30 | NUR ---
Significant Event:Sat in chair for supper & tolerated well. Bruit strong to dialysis port in left forearm. Stitches intact to right upper neck. Subclavian intact to right upper chest. No void for me. Says that he usually does not void. Uses walker to ambulate. Hand grasps are strong & equal. Is alert & oriented x 3.
--- NOTE | 2016-11-17 00:05 | NUR ---
Attempted to call Sairka Raphael, Saji's daughter per his sister's request, to let her know that Saji had been moved to room 3204. Unable to reach her by telephone (busy signal) Unable to leave message.
--- NOTE | 2016-11-17 04:48 | NUR ---
Transferred from ICU at shift change. Alert and oriented. Generalized weakness. Activity with 1 assist, gait belt and walker. PICC to right chest. Red lumen does not flush. Purple lumen flushes well and has good blood return. Dialysis patient- had dialysis yesterday. AV fistula to left FA. Thrill and bruit present. Renal diet. No void this shift. Lidocaine patch to back. Austin x 1 for back pain/fever of 100.3.
[2016-11-17 05:43] LABS: BASOPHIL % 0.7 %; EOSINOPHIL # 0.2 K/uL (0.0-0.5); EOSINOPHIL % 3.9 %; HEMATOCRIT 24.7 % (37.0-53.0); HEMOGLOBIN 8.1 g/dL (11.0-16.0); IMMATURE GRANULOCYTE # 0.1 K/uL (0.0-0.3); IMMATURE GRANULOCYTE % 2.4 %; LYMPHOCYTE # 0.9 K/uL (0.8-4.0); LYMPHOCYTE % 14.5 %; MCH 30.3 pg (27.0-34.0); MCHC 32.8 gm/dL (32.0-36.5); MCV 92.5 fl (83.0-98.0); MONOCYTE # 0.7 K/uL (0.0-1.0); MONOCYTE % 12.2 %; MPV 10.7 fl (9.4-12.4); NEUTROPHIL # (ANC) 3.9 K/uL (1.4-9.0); NEUTROPHIL % 66.3 %; NRBC % 0 /100WBC (0-0.00); PLATELET COUNT 366 K/uL (150-450); RBC 2.67 M/uL (3.50-5.50); RDW-CV 19.7 % (11.9-14.6); WBC 5.9 K/uL (4.0-11.0)
[2016-11-17 06:01] LABS: ALBUMIN 2.5 gm/dL (3.5-5.0); ALK PHOS 591 IU/L (33-138); ALT < 10 IU/L (12-78); AST 28 IU/L (10-40); BLOOD UREA NITROGEN 27 mg/dL (6-24); CALCIUM 8.7 mg/dL (8.5-10.5); CHLORIDE 99 mMol/L (96-110); CO2 28 mMol/L (22-32); CREATININE 4.8 mg/dL (0.6-1.3); ESTIMATED GFR (MDRD EQUATION) 12; SODIUM 136 mMol/L (135-145); TOTAL PROTEIN 7.1 g/dL (6.0-8.4)
--- NOTE | 2016-11-17 12:09 | NUR ---
PT MOVED TO NO RISK W/ CONSISTENT 75-100% INTAKE. WILL CONT GLUCERNA TID D/T INCREASED NEEDS OF DIALYSIS. WILL ASSIST NEEDED.
--- NOTE | 2016-11-17 16:08 | NUR ---
Phone call from Charge Nurse Amber at approximately 1230 stating Peter Meza APRN wanted to know the discharge plan for patient. Per Peter, he feels patient is ready for discharge to a intermediate facility or to home with home health care. Patient has dialysis on at [facility] from 5705-3049 and patient will need IV antibiotics on MWF after dialysis until December 16. I spoke to patient and at this time he prefers to discharge to home with home health care but he said to talk to this daughter Sarika. I placed a call to [facility] and spoke to Diana to see if they are able to administer the IV antibiotics after patient's dialysis which she states they cannot do at their facility. I spoke to patient's daughter and she states she wants her dad to be safe, but prefers he is at home if he is able to care for himself. I had multiple conversations throughout the afternoon with patient, his sister Simona [phone], his daughter Sarika [phone], Peter Meza and Dr. Nevarez and we are all in agreement that since patient is ambulating with a front wheeled walker as SBA 150 feet he is okay to discharge to home with home health care PT and OT. I contacted pharmacy to see if there is a period of time that patient needs to have the IV antibiotic administered after dialysis and Precious told me as long as it is after dialysis anytime will be okay, so even though he gets it around 1500 here 1700 in [place] would be okay. I will place a phone call to [facility] to make arrangements for his IV antibiotics and contact [facility] care per Sarika's preference to set up his intermediate care and therapies. Patient's information sent to [facility] via fax at [phone]. I called [place] [phone] and spoke to Sara regarding the IV antibiotics and the orders were faxed to her at [phone]. At 1653 I called Oma at [facility] and informed her that the goal is for patient to discharge in the morning so they should plan for him to be at their facility for dialysis tomorrow. Notified daughter Sarika that all arrangements have been made. Notified Peter Meza APRn of the plan.
--- NOTE | 2016-11-17 16:33 | NUR ---
Significant Event:Is A/O.Forgetful at times.Has Rt.upper chest central line.Has Lt upper arm fistula.Dialysis M-W-.Has some lower back pain that is not a new thing.No nausea.Maybe home tomorrow or Thurs.Amb with walker & 1 assist.Had small stool today. Follow up:
--- NOTE | 2016-11-18 05:10 | NUR ---
Significant Event: ALERT AND ORIENTATED X 3 FORGET AT TIMES. AMBULATES WITH ONE ASSIST GB WALKER. PICC LINE TO UPPER R) CHEST PURPLE LINE FLUSHES WITH GOOD BLOOD RETURN RED DOES NOT FLUSH PER CHARGE NURSE. FISTULA UPPER L) ARM DIALYSIS MWF. DOES NOT PRODUCE MUCH URINE. RENAL DIET. STITCHES INTACT TO R)UPPER NECK. NORCO X 1 TAB AT 7923. Follow up:
[2016-11-18 05:44] LABS: BASOPHIL # 0.1 K/uL (0.0-0.2); BASOPHIL % 1.1 %; EOSINOPHIL # 0.3 K/uL (0.0-0.5); HEMOGLOBIN 8.1 g/dL (11.0-16.0); IMMATURE GRANULOCYTE # 0.1 K/uL (0.0-0.3); IMMATURE GRANULOCYTE % 1.5 %; LYMPHOCYTE # 0.8 K/uL (0.8-4.0); LYMPHOCYTE % 14.4 %; MCH 30.1 pg (27.0-34.0); MCHC 32.4 gm/dL (32.0-36.5); MCV 92.9 fl (83.0-98.0); MONOCYTE # 0.6 K/uL (0.0-1.0); MONOCYTE % 11.2 %; MPV 10.9 fl (9.4-12.4); NEUTROPHIL # (ANC) 3.6 K/uL (1.4-9.0); NEUTROPHIL % 66.8 %; NRBC % 0 /100WBC (0-0.00); PLATELET COUNT 336 K/uL (150-450); RBC 2.69 M/uL (3.50-5.50); RDW-CV 20.2 % (11.9-14.6); WBC 5.4 K/uL (4.0-11.0)
[2016-11-18 06:14] LABS: ALBUMIN 2.5 gm/dL (3.5-5.0); ANION GAP 17.8 (10.0-19.0); AST 34 IU/L (10-40); CALCIUM 9.2 mg/dL (8.5-10.5); CHLORIDE 96 mMol/L (96-110); CO2 23 mMol/L (22-32); MAGNESIUM 2.2 mg/dL (1.3-2.6); POTASSIUM 4.8 mMol/L (3.7-5.1); SODIUM 132 mMol/L (135-145); TOTAL BILIRUBIN 2.2 mg/dL (0.0-1.5); TOTAL PROTEIN 7.2 g/dL (6.0-8.4)
[2016-11-18 06:15] LABS: ALK PHOS 632 IU/L (33-138); ALT < 10 IU/L (12-78); BLOOD UREA NITROGEN 44 mg/dL (6-24); CREATININE 6.5 mg/dL (0.6-1.3); ESTIMATED GFR (MDRD EQUATION) 8
[2016-11-18] MEDS ORDERED: CEFAZOLIN2 GM/50 ML IV (09:08)
[2016-11-18] MEDS ORDERED: CEFAZOLIN IV (09:14)
[2016-11-18] MEDS ORDERED: LEVEMIR100 UNIT/1 SUB-Q (09:15)
[2016-11-18] MEDS ORDERED: LIDODERM1 EACH TRANS (09:17)
[2016-11-18] MEDS ORDERED: PRINIVIL (ZESTR20 MG PO (09:17)
[2016-11-18] MEDS ORDERED: ALDACTONE25 MG PO (09:19)
[2016-11-18] MEDS ORDERED: MIRALAX17 GM PO (09:19)
[2016-11-18] MEDS ORDERED: NORCO 5-325 TA1 EACH PO (09:20)
[2016-11-18] MEDS ORDERED: GLUCOSE4 GM PO (09:20)
[2016-11-18] MEDS ORDERED: GLUCAGON 1 MG PE1 MG SUB-Q (09:21)
--- NOTE | 2016-11-18 09:36 | NUR ---
D: Orders received for the patient to be discharged today prior to dialysis at 1000. I: Dismissal instructions were prepared and reviewed with the patient and his daughter jenna. The following information was discussed including [employer] teaching sheets: Understanding sepsis, staph infection non-MRSA, Cefazolin, Lidocaine patch, Lisinopril, Miralax, Aldactone, [place], Glucagon, Glucose tabs, and preventing DVT. Reviewed follow up appointments and new prescriptions. R: The patient and his daughter both verbalized understanding of the dismissal education at the time of teaching with no further questions. P: The above information was shared with the primary nures, charge nurse and the nures aide that the dismissal education is complete. The patient is ready for discharge and will go straight to Dialysis. The patient was transported via wheel chair by nursing staff to the front door to go home with his family.
--- NOTE | 2016-11-18 09:47 | NUR ---
Phone call to Dr. Nevarez at [phone] to ask him to be sure to sign patient's discharge papers as soon as possible as he needs to discharge before 1000 because he has dialysis at 1000 at [facility]. Phone calls to [facility] at [phone] to confirm they received fax last evening on patient home health orders. Spoke to Oma and she states they did not get the fax. Refaxed from [facility] at 0915 to Oma at [phone]. Phone call to Kylah at [facility] [place] to confirm they received fax last evening on patient and Kylah states that they did not receive the fax. She asked me to resend to a different number. Fax resent to Kylah at [phone]. Phone call from [facility] at 0945 asking where patient is having his IV antibiotics because daughter is telling her they are scheduled to be done at [facility] I confirmed with [facility] that the daughter is correct. [facility] is not able to administer his IV antibiotics at their location and patient and daughter wanted them to be done in [place]. CRISTIN has completed all of my discharge planning paperwork. Pt to discharge before 1000 today.
== END 2016-11-18 09:55 | disposition disaster alternative care site (69) | DRG 871 ==
LOC: GMED 09:03 → GPCU 11:35 → GICU 11:35 → GMSU 11-16 19:51
PROVIDERS: Family Medicine; Internal Medicine; Internal Medicine Nephrology; Nurse Practitioner; Physician Assistant; ADMIT Internal Medicine
PROC: 5A1D60Z (ICD-10-PCS; 2016-11-02)
PROC: 05HM33Z Insertion of Infusion Device into Right Internal Jugular Vein, Percutaneous Approach (ICD-10-PCS; 2016-11-05)
PROC: B513YZA Fluoroscopy of Right Jugular Veins using Other Contrast, Guidance (ICD-10-PCS; 2016-11-05)
PROC: B51WYZZ Fluoroscopy of Dialysis Shunt/Fistula using Other Contrast (ICD-10-PCS; principal; 2016-11-06)
PROC: 30233N1 Transfusion of Nonautologous Red Blood Cells into Peripheral Vein, Percutaneous Approach (ICD-10-PCS; 2016-11-12)
DX: A41.01 Sepsis due to Methicillin susceptible Staphylococcus aureus (principal); G93.40 Encephalopathy, unspecified; I33.0 Acute and subacute infective endocarditis; A04.7 Enterocolitis due to Clostridium difficile; N18.6 End stage renal disease; I12.0 Hypertensive chronic kidney disease with stage 5 chronic kidney disease or end stage renal disease; D69.6 Thrombocytopenia, unspecified; D62 Acute posthemorrhagic anemia; D63.8 Anemia in other chronic diseases classified elsewhere; E11.9 Type 2 diabetes mellitus without complications; R65.20 Severe sepsis without septic shock; I25.10 Atherosclerotic heart disease of native coronary artery without angina pectoris; Z99.2 Dependence on renal dialysis
CPT/HCPCS: A9270; C1751; J0131; J0690; J1644; J1756; J1885; J1956; J2060; J2270; J2310; J2543; J2997; J3010; J3370; J7030; J7040; J7050; J7060; P9016; P9047; Q4081; Q9967

== ENCOUNTER → 2016-12-18 | Outpatient (CLI) | payer MEDICARE, OTHER ==
[~2016-12-18] MED LIST: ACID CONTROL150 MG PO; ALDACTONE25 MG PO; ATROVENT NASAL0.03 % NOSE; CEFAZOLIN IV; CEFAZOLIN2 GM/50 ML IV; COREG25 MG PO; DIOVAN320 MG PO; GLUCAGON 1 MG PE1 MG SUB-Q; GLUCOSE4 GM PO; LANTUS (IN100 UNIT/M SUB-Q; LEVEMIR100 UNIT/1 SUB-Q; LIDODERM1 EACH TRANS; LIPITOR10 MG PO; MIRALAX17 GM PO; NORCO 5-325 TA1 EACH PO; NORVASC10 MG PO; PHOSLO667 MG PO; PRINIVIL (ZESTR20 MG PO; ROPINIROLE HC0.25 MG PO
== END | disposition disaster alternative care site (69) ==
LOC: GRAD 08:13
DX: M54.5 Low back pain (principal); M47.896 Other spondylosis, lumbar region; A41.01 Sepsis due to Methicillin susceptible Staphylococcus aureus

== ENCOUNTER → 2017-01-04 | Outpatient (CLI) | payer MEDICARE, OTHER | LOC: GRAD 15:24 | PROC: 05PY33Z Removal of Infusion Device from Upper Vein, Percutaneous Approach (ICD-10-PCS; principal; 2017-01-04) | DX: Z45.2 Encounter for adjustment and management of vascular access device (principal) ==